=== PATIENT | female | born 1960 | race Caucasian/White ===

== ENCOUNTER 2021-12-31 14:15 | Inpatient (IN) | payer SELFPAY ==
[2021-12-31 16:16] LABS: #Eosinphils 0.1 thou/uL (0.0-0.7); #Lymphocytes 1.9 thou/uL (1.20-3.40); #Monocytes 0.7 thou/uL (0.11-0.59); #Neutrophils 8.8 thou/uL (1.40-6.50); %Basophils 0.4 % (0.0-1.0); %Eosinophils 0.9 % (0.0-10.0); %Lymphocytes 16.8 % (21.0-51.0); %Monocytes 5.6 % (0.0-10.0); %Neutrophils 76.3 % (42.0-75.0); Hemoglobin 14.1 g/dL (12.0-16.0); Mean Corpuscular HGB CONC 33.7 g/dL (32.0-36.0); Mean Corpuscular Hemoglobin 36.1 pg (27.0-31.0); Mean Platelet Volume 7.5 fL (7.4-10.4); Platelet Count 324 thou/uL (130-400); Red Blood Cell (RBC) Count 3.91 mill/uL (4.20-5.40); White Blood Cell (WBC) Count 11.5 thou/uL (4.8-10.8)
[2021-12-31] MEDS ORDERED: Ketorolac Tromethamine 30 MG/ML VIAL ONE (16:22)
[2021-12-31] MEDS ORDERED: Morphine 4 MG/ML VIAL ONE ×2 (16:22→19:17)
[2021-12-31 16:37] LABS: ALT (SGPT) 18 U/L (8-55); AST (SGOT) 15 U/L (5-34); Acetaminophen Less than 10.0 mcg/mL (10.0-30.0); Albumin 4.2 g/dL (3.4-4.8); Alcohol Less than 10 mg/dL (Less than 10); Alkaline Phosphatase 90 U/L (40-110); Anion Gap 17 mmol/L (10-20); BUN (Urea Nitrogen) 16 mg/dL (9.8-20.1); Bilirubin, Total 0.4 mg/dL (0.2-1.2); CK (CPK) 59 U/L (29-168); Calc. Creatinine Clearance 0 mL/min (70-130); Calcium 9.4 mg/dL (7.8-10.44); Carbon Dioxide 23 mmol/L (23-31); Chloride 101 mmol/L (98-107); Globulin 3.1 g/dL (2.4-3.5); Glucose 228 mg/dL (80-115); Potassium 4.2 mmol/L (3.5-5.1); Protein, Total 7.3 g/dL (5.8-8.1); Salicylate Less than 8.0 mg/dL (15.0-30.0); Sodium 137 mmol/L (136-145)
[2021-12-31 16:40] LABS: MDiff Complete? YES; Macrocytosis SLIGHT = 6-15 cells (100X) (0-5/hpf); Platelet Morphology Comment Appears Adequate
[2021-12-31 17:40] LABS: Bilirubin Negative (Negative); Blood, Urine Negative (Negative); Clarity Clear (Clear); Glucose, Urine (Dipstick) Normal (Negative); Ketone, Urine Negative (Negative); Leukocyte Negative Leu/uL (Negative); Nitrite Negative (Negative); Protein, Urine (Dipstick) Negative (Neg-Trace); Specific Gravity, Urine 1.006 (1.002-1.036); Urobilinogen Normal mg/dL (Less than 2)
[2021-12-31 17:49] LABS: Amphetamine Not Detected (NotDetected); Barbiturates Screen Not Detected (NotDetected); Benzodiazepine Screen Not Detected (NotDetected); Cocaine Metabolite Screen Not Detected (NotDetected); Methadone Not Detected (NotDetected); Methamphetamine Not Detected (NotDetected); Opiate Screen Detected (NotDetected); Oxycodone Screen Not Detected (NotDetected); Phencyclidine (PCP) Not Detected (NotDetected); THC/Cannabinoid Screen Detected (NotDetected); Tricyclic Screen Not Detected (NotDetected)
[2021-12-31] MEDS ORDERED: Ondansetron PF 4 MG/2 ML Vial IVP PRN (20:45)
[2021-12-31] MEDS ORDERED: Ondansetron ODT 4 MG TAB SL PRN (20:45)
[2021-12-31] MEDS ORDERED: Morphine 4 MG/ML VIAL SLOW IVP PRN (20:46)
[2021-12-31 21:13] VITALS: BMI 23.5
[2022-01-01 06:29] LABS: #Eosinphils 0.3 thou/uL (0.0-0.7); #Lymphocytes 3.3 thou/uL (1.20-3.40); #Neutrophils 4.1 thou/uL (1.40-6.50); %Basophils 0.4 % (0.0-1.0); %Eosinophils 3.1 % (0.0-10.0); %Lymphocytes 38.1 % (21.0-51.0); %Neutrophils 47.4 % (42.0-75.0); Hemoglobin 12.2 g/dL (12.0-16.0); Mean Corpuscular Hemoglobin 34.9 pg (27.0-31.0); Mean Platelet Volume 7.3 fL (7.4-10.4); Platelet Count 272 thou/uL (130-400); RBC Distribution Width 12.1 % (11.5-14.5); Red Blood Cell (RBC) Count 3.49 mill/uL (4.20-5.40); White Blood Cell (WBC) Count 8.6 thou/uL (4.8-10.8)
[2022-01-01 06:45] LABS: Anion Gap 14 mmol/L (10-20); BUN (Urea Nitrogen) 20 mg/dL (9.8-20.1); Calc. Creatinine Clearance 83 mL/min (70-130); Calcium 8.6 mg/dL (7.8-10.44); Carbon Dioxide 24 mmol/L (23-31); Chloride 106 mmol/L (98-107); Glucose 97 mg/dL (80-115); Potassium 4.1 mmol/L (3.5-5.1); Sodium 140 mmol/L (136-145)
[2022-01-01] MEDS: Gabapentin 300 MG CAP PO SCH ×2 (08:30→13:28)
[2022-01-01] MEDS ORDERED: HYDROcodone/Acetaminophen 5/325 mg Tablet PO PRN (08:40)
[2022-01-01] MEDS: HYDROcodone/Acetaminophen 5/325 mg Tablet PO PRN ×2 (08:55→13:28)
[2022-01-01] MEDS ORDERED: Thiamine 100 MG TAB PO SCH (09:00)
[2022-01-01] MEDS ORDERED: Folic Acid 1 MG TAB PO SCH (09:00)
[2022-01-01 09:08] VITALS: BP 91/57; TEMP 98
[2022-01-01] MEDS ORDERED: Lidocaine 5% Patch TD SCH (16:15)
[2022-01-01] MEDS ORDERED: PARoxetine 20 MG TAB PO SCH (21:00)
[2022-01-01] MEDS ORDERED: traZODone HCl 50 MG TAB PO SCH (21:00)
[2022-01-02] MEDS ORDERED: Transdermal Patch Removal TOP SCH (04:00)
== END 2022-01-01 17:24 | disposition home or self-care (01) | DRG 552 ==
LOC: ERS 14:15 → T4-A 19:34
PROVIDERS: ADMIT Internal Medicine; ATTEND Internal Medicine
DX: M54.16 Radiculopathy, lumbar region (principal); Z20.822 Contact with and (suspected) exposure to COVID-19; I10 Essential (primary) hypertension; F41.9 Anxiety disorder, unspecified; F32.A Depression, unspecified; E78.5 Hyperlipidemia, unspecified; F12.10 Cannabis abuse, uncomplicated; F17.210 Nicotine dependence, cigarettes, uncomplicated; E78.00 Pure hypercholesterolemia, unspecified; Z98.890 Other specified postprocedural states; Z88.0 Allergy status to penicillin; Z79.899 Other long term (current) drug therapy; Z82.49 Family history of ischemic heart disease and other diseases of the circulatory system; Z71.51 Drug abuse counseling and surveillance of drug abuser; Z71.6 Tobacco abuse counseling
CPT/HCPCS: 36415; 36416; 72148; 80048; 80053; 80306; 80307; 81003; 82550; 82607; 82746; 83690; 85025; 93005; 96374; 96375; 96376; J1885; J2270; U0003; U0005

== ENCOUNTER 2022-02-08 11:02 | Inpatient (IN) | payer SELFPAY ==
[2022-02-08] MEDS ORDERED: Morphine 4 MG/ML VIAL ONE (14:17)
[2022-02-08] MEDS ORDERED: Ondansetron PF 4 MG/2 ML Vial ONE (14:17)
[2022-02-08 15:16] LABS: ALT (SGPT) 41 U/L (8-55); AST (SGOT) 52 U/L (5-34); Alkaline Phosphatase 144 U/L (40-110); Anion Gap 14 mmol/L (10-20); BUN (Urea Nitrogen) 14 mg/dL (9.8-20.1); Bilirubin, Total 0.3 mg/dL (0.2-1.2); Calc. Creatinine Clearance 0 mL/min (70-130); Calcium 9.6 mg/dL (7.8-10.44); Carbon Dioxide 27 mmol/L (23-31); Chloride 100 mmol/L (98-107); Estimated GFR 98; Globulin 3.6 g/dL (2.4-3.5); Glucose 103 mg/dL (80-115); Lipase 23 U/L (8-78); Potassium 4.4 mmol/L (3.5-5.1); Protein, Total 7.6 g/dL (5.8-8.1); Sodium 137 mmol/L (136-145)
[2022-02-08 15:34] LABS: Bacteria/HPF None Seen HPF (None Seen); Bilirubin Negative (Negative); Blood, Urine 1+ (Negative); Clarity Clear (Clear); Glucose, Urine (Dipstick) Normal (Negative); Ketone, Urine Negative (Negative); Leukocyte 25 Leu/uL (Negative); Nitrite Negative (Negative); Protein, Urine (Dipstick) Negative (Neg-Trace); RBC/HPF 0-3 HPF (0-3); Specific Gravity, Urine 1.008 (1.002-1.036); Squamous Epithelial 0-3 HPF (0-3); Urobilinogen Normal mg/dL (Less than 2); WBC/HPF 0-3 HPF (0-3); pH, Urine 5.5 (5.0-9.0)
[2022-02-08 16:17] LABS: #Eosinphils 0.2 thou/uL (0.0-0.7); #Lymphocytes 1.6 thou/uL (1.20-3.40); #Monocytes 1.1 thou/uL (0.11-0.59); #Neutrophils 8.6 thou/uL (1.40-6.50); %Basophils 0.2 % (0.0-1.0); %Eosinophils 2.1 % (0.0-10.0); %Lymphocytes 14.2 % (21.0-51.0); %Monocytes 9.3 % (0.0-10.0); %Neutrophils 74.2 % (42.0-75.0); Hemoglobin 11.5 g/dL (12.0-16.0); Mean Corpuscular HGB CONC 32.5 g/dL (32.0-36.0); Mean Corpuscular Hemoglobin 34.4 pg (27.0-31.0); Mean Platelet Volume 7.3 fL (7.4-10.4); Platelet Count 322 thou/uL (130-400); RBC Distribution Width 12.3 % (11.5-14.5); Red Blood Cell (RBC) Count 3.33 mill/uL (4.20-5.40); White Blood Cell (WBC) Count 11.6 thou/uL (4.8-10.8)
[2022-02-08] MEDS ORDERED: Acetaminophen 325 MG TAB PO PRN (17:32)
[2022-02-08] MEDS ORDERED: Ondansetron PF 4 MG/2 ML Vial IVP PRN (17:32)
[2022-02-08] MEDS: HYDROcodone/Acetaminophen 10/325 mg Tablet PO PRN (18:20)
[2022-02-08] MEDS: Nicotine 21 MG PATCH TD SCH (18:20)
[2022-02-08] MEDS ORDERED: Vancomycin 1.5 GRAM/300 ML BAG 1.5 GM in Premix Bag 1 BAG IVPB SCH (22:00)
[2022-02-08] MEDS: Gabapentin 300 MG CAP PO SCH (22:34)
[2022-02-08] MEDS: Famotidine 20 MG TAB PO SCH (22:34)
[2022-02-08] MEDS: DULoxetine 30 MG CAP PO SCH (22:34)
[2022-02-08] MEDS: Ciprofloxacin Lactate/D5W 200 MG in Premix Bag 1 BAG IVPB SCH (22:35)
[2022-02-08] MEDS: Heparin 5,000 UNITS/ML VIAL SC SCH (22:35)
[2022-02-09] MEDS: HYDROcodone/Acetaminophen 10/325 mg Tablet PO PRN ×5 (01:07→23:36)
[2022-02-09] MEDS ORDERED: traZODone HCl 50 MG TAB PO SCH (02:00)
[2022-02-09 06:05] LABS: #Eosinphils 0.1 thou/uL (0.0-0.7); #Lymphocytes 2.2 thou/uL (1.20-3.40); #Monocytes 1.4 thou/uL (0.11-0.59); #Neutrophils 8.9 thou/uL (1.40-6.50); %Basophils 0.1 % (0.0-1.0); %Lymphocytes 17.3 % (21.0-51.0); %Monocytes 11.2 % (0.0-10.0); %Neutrophils 70.4 % (42.0-75.0); Hemoglobin 11.2 g/dL (12.0-16.0); Mean Corpuscular HGB CONC 32.4 g/dL (32.0-36.0); Mean Corpuscular Hemoglobin 34.1 pg (27.0-31.0); Mean Platelet Volume 7.5 fL (7.4-10.4); Platelet Count 341 thou/uL (130-400); RBC Distribution Width 12.2 % (11.5-14.5); Red Blood Cell (RBC) Count 3.28 mill/uL (4.20-5.40); White Blood Cell (WBC) Count 12.6 thou/uL (4.8-10.8)
[2022-02-09 06:22] LABS: Anion Gap 13 mmol/L (10-20); BUN (Urea Nitrogen) 10 mg/dL (9.8-20.1); Calc. Creatinine Clearance 105 mL/min (70-130); Carbon Dioxide 26 mmol/L (23-31); Chloride 95 mmol/L (98-107); Estimated GFR 101; Glucose 131 mg/dL (80-115); Potassium 3.9 mmol/L (3.5-5.1); Sodium 130 mmol/L (136-145)
[2022-02-09] MEDS: Ciprofloxacin Lactate/D5W 200 MG in Premix Bag 1 BAG IVPB SCH ×2 (09:15→20:16)
[2022-02-09] MEDS: Gabapentin 300 MG CAP PO SCH ×3 (09:16→20:18)
[2022-02-09] MEDS: NIFEdipine XL 90 MG TAB PO SCH (09:17)
[2022-02-09] MEDS: Heparin 5,000 UNITS/ML VIAL SC SCH ×2 (09:17→20:18)
[2022-02-09] MEDS: Famotidine 20 MG TAB PO SCH ×2 (09:18→20:17)
[2022-02-09] MEDS: Vancomycin 1 GM in Premix Bag 1 BAG IVPB SCH ×2 (10:41→23:35)
[2022-02-09] MEDS: Morphine 4 MG/ML VIAL SLOW IVP PRN (10:42)
[2022-02-09] MEDS ORDERED: Polyethylene Glycol 3350 17 GM Packet PO PRN (13:11)
[2022-02-09] MEDS: Nicotine 21 MG PATCH TD SCH (17:06)
[2022-02-09] MEDS: DULoxetine 30 MG CAP PO SCH (20:17)
[2022-02-09] MEDS: traZODone HCl 50 MG TAB PO SCH (20:17)
[2022-02-09 22:57] LABS: Hep C IgG Ab Non-Reactive (NonReactive); Hep C Index 0.08 S/CO (0-0.79)
[2022-02-09] MEDS ORDERED: Vancomycin 1 GM/200 ML BAG ONE (23:27)
[2022-02-10] MEDS: HYDROcodone/Acetaminophen 10/325 mg Tablet PO PRN ×4 (03:59→18:12)
[2022-02-10] MEDS: Heparin 5,000 UNITS/ML VIAL SC SCH ×2 (08:48→22:23)
[2022-02-10] MEDS: Gabapentin 300 MG CAP PO SCH ×3 (08:48→23:19)
[2022-02-10] MEDS: Famotidine 20 MG TAB PO SCH ×2 (08:49→22:16)
[2022-02-10 09:48] LABS: Vancomycin, Trough 12.6 ug/mL
[2022-02-10] MEDS ORDERED: VANCOMYCIN 1.25 GM/250 ML BAG 1.25 GM in Premix Bag 1 BAG IVPB SCH (10:00)
[2022-02-10] MEDS: Morphine 4 MG/ML VIAL SLOW IVP PRN ×2 (11:37→22:16)
[2022-02-10] MEDS: NIFEdipine XL 90 MG TAB PO SCH (11:37)
[2022-02-10] MEDS: Vancomycin 1 GM in Premix Bag 1 BAG IVPB SCH (11:40)
[2022-02-10] MEDS: Ciprofloxacin Lactate/D5W 200 MG in Premix Bag 1 BAG IVPB SCH (14:04)
[2022-02-10] MEDS: cefTRIAXone\\ROCEPHIN 1 GM in Sodium Chloride 0.9% 100 ML IVPB SCH (14:22)
[2022-02-10 14:38] LABS: #Eosinphils 0.1 thou/uL (0.0-0.7); #Lymphocytes 1.6 thou/uL (1.20-3.40); #Monocytes 1.4 thou/uL (0.11-0.59); #Neutrophils 10.6 thou/uL (1.40-6.50); %Basophils 0.1 % (0.0-1.0); %Eosinophils 0.5 % (0.0-10.0); %Lymphocytes 11.5 % (21.0-51.0); %Monocytes 10.1 % (0.0-10.0); %Neutrophils 77.9 % (42.0-75.0); Hemoglobin 10.6 g/dL (12.0-16.0); Mean Corpuscular HGB CONC 33.2 g/dL (32.0-36.0); Mean Corpuscular Hemoglobin 35.1 pg (27.0-31.0); Mean Platelet Volume 7.3 fL (7.4-10.4); Platelet Count 341 thou/uL (130-400); RBC Distribution Width 12.2 % (11.5-14.5); Red Blood Cell (RBC) Count 3.02 mill/uL (4.20-5.40); White Blood Cell (WBC) Count 13.6 thou/uL (4.8-10.8)
[2022-02-10 14:57] LABS: Anion Gap 15 mmol/L (10-20); BUN (Urea Nitrogen) 13 mg/dL (9.8-20.1); Calc. Creatinine Clearance 100 mL/min (70-130); Calcium 8.8 mg/dL (7.8-10.44); Carbon Dioxide 21 mmol/L (23-31); Chloride 97 mmol/L (98-107); Estimated GFR 100; Glucose 117 mg/dL (80-115); Potassium 4.1 mmol/L (3.5-5.1); Sodium 129 mmol/L (136-145)
[2022-02-10] MEDS: Nicotine 21 MG PATCH TD SCH (18:12)
[2022-02-10] MEDS: DULoxetine 30 MG CAP PO SCH (23:19)
[2022-02-10] MEDS: traZODone HCl 50 MG TAB PO SCH (23:20)
[2022-02-11 06:00] LABS: #Eosinphils 0.1 thou/uL (0.0-0.7); #Lymphocytes 1.7 thou/uL (1.20-3.40); #Monocytes 1.7 thou/uL (0.11-0.59); #Neutrophils 11.8 thou/uL (1.40-6.50); %Eosinophils 0.3 % (0.0-10.0); %Lymphocytes 11.2 % (21.0-51.0); %Monocytes 11.1 % (0.0-10.0); %Neutrophils 77.4 % (42.0-75.0); Hemoglobin 10.7 g/dL (12.0-16.0); Mean Corpuscular HGB CONC 33.2 g/dL (32.0-36.0); Mean Corpuscular Hemoglobin 34.8 pg (27.0-31.0); Mean Platelet Volume 7.2 fL (7.4-10.4); Platelet Count 381 thou/uL (130-400); RBC Distribution Width 12.1 % (11.5-14.5); Red Blood Cell (RBC) Count 3.08 mill/uL (4.20-5.40); White Blood Cell (WBC) Count 15.3 thou/uL (4.8-10.8)
[2022-02-11 06:17] LABS: Anion Gap 15 mmol/L (10-20); BUN (Urea Nitrogen) 10 mg/dL (9.8-20.1); Calc. Creatinine Clearance 100 mL/min (70-130); Calcium 9.2 mg/dL (7.8-10.44); Carbon Dioxide 24 mmol/L (23-31); Chloride 94 mmol/L (98-107); Estimated GFR 100; Glucose 135 mg/dL (80-115); Potassium 4.2 mmol/L (3.5-5.1); Sodium 129 mmol/L (136-145)
[2022-02-11] MEDS: Morphine 4 MG/ML VIAL SLOW IVP PRN ×3 (08:29→20:26)
[2022-02-11] MEDS: NIFEdipine XL 90 MG TAB PO SCH (08:37)
[2022-02-11] MEDS: Gabapentin 300 MG CAP PO SCH ×3 (08:37→20:24)
[2022-02-11] MEDS: Heparin 5,000 UNITS/ML VIAL SC SCH ×2 (08:38→20:31)
[2022-02-11] MEDS: Famotidine 20 MG TAB PO SCH ×2 (08:38→20:24)
[2022-02-11] MEDS ORDERED: valACYclovir 500 MG TAB PO SCH ×2 (09:00→11:30)
[2022-02-11] MEDS ORDERED: Lidocaine 1% w/Epinephrine 1:100K 20 ML VIAL FS SCH (10:45)
[2022-02-11] MEDS: cefTRIAXone\\ROCEPHIN 1 GM in Sodium Chloride 0.9% 100 ML IVPB SCH (15:42)
[2022-02-11] MEDS: Nicotine 21 MG PATCH TD SCH (18:06)
[2022-02-11] MEDS: traZODone HCl 50 MG TAB PO SCH (20:23)
[2022-02-11] MEDS: DULoxetine 30 MG CAP PO SCH (20:24)
[2022-02-11] MEDS: valACYclovir 500 MG TAB PO SCH (20:24)
[2022-02-11] MEDS: Sodium Chloride 0.9% 1,000 ML IV SCH (21:14)
[2022-02-11] MEDS: HYDROcodone/Acetaminophen 10/325 mg Tablet PO PRN (22:42)
[2022-02-12] MEDS: HYDROcodone/Acetaminophen 10/325 mg Tablet PO PRN ×3 (06:03→17:08)
[2022-02-12 06:52] LABS: Anion Gap 17 mmol/L (10-20); BUN (Urea Nitrogen) 13 mg/dL (9.8-20.1); Calc. Creatinine Clearance 107 mL/min (70-130); Calcium 8.8 mg/dL (7.8-10.44); Carbon Dioxide 21 mmol/L (23-31); Chloride 91 mmol/L (98-107); Estimated GFR 102; Glucose 112 mg/dL (80-115); Potassium 3.6 mmol/L (3.5-5.1); Sodium 125 mmol/L (136-145)
[2022-02-12] MEDS: Sodium Chloride 0.9% 1,000 ML IV SCH ×2 (07:32→20:16)
[2022-02-12] MEDS: valACYclovir 500 MG TAB PO SCH ×3 (08:27→21:00)
[2022-02-12] MEDS: Gabapentin 300 MG CAP PO SCH ×2 (08:28→13:58)
[2022-02-12] MEDS: Famotidine 20 MG TAB PO SCH ×2 (08:28→21:01)
[2022-02-12] MEDS: NIFEdipine XL 90 MG TAB PO SCH (08:28)
[2022-02-12] MEDS: Heparin 5,000 UNITS/ML VIAL SC SCH ×2 (08:28→21:03)
[2022-02-12] MEDS: Morphine 4 MG/ML VIAL SLOW IVP PRN ×4 (08:32→23:26)
[2022-02-12 09:06] LABS: Band 5 % (5-11); Hemoglobin 10.6 g/dL (12.0-16.0); Lymphocytes 6 % (21-51); MDiff Complete? YES; Mean Corpuscular Hemoglobin 35.3 pg (27.0-31.0); Mean Platelet Volume 7.3 fL (7.4-10.4); Metamyelocyte 3 % (0-0); Monocytes 10 % (0-10); Neutrophil 76 % (42-75); Platelet Count 380 thou/uL (130-400); Platelet Morphology Comment Appears Adequate; RBC Morphology Normal; Red Blood Cell (RBC) Count 3.01 mill/uL (4.20-5.40)
[2022-02-12] MEDS: cefTRIAXone\\ROCEPHIN 1 GM in Sodium Chloride 0.9% 100 ML IVPB SCH (13:59)
[2022-02-12] MEDS: Ferrous Sulfate 325 MG TAB PO SCH (17:07)
[2022-02-12] MEDS: Nicotine 21 MG PATCH TD SCH (17:08)
[2022-02-12] MEDS: traZODone HCl 50 MG TAB PO SCH (20:59)
[2022-02-12] MEDS: Gabapentin 400 MG CAP PO SCH (20:59)
[2022-02-12] MEDS: DULoxetine 30 MG CAP PO SCH (21:01)
[2022-02-13] MEDS: HYDROcodone/Acetaminophen 10/325 mg Tablet PO PRN ×4 (01:32→17:01)
[2022-02-13 06:53] LABS: Band 13 % (5-11); Hemoglobin 9.8 g/dL (12.0-16.0); Hypochromia SLIGHT = 6-15 cells (100X) (0-5/hpf); Lymphocytes 23 % (21-51); MDiff Complete? YES; Mean Corpuscular HGB CONC 32.7 g/dL (32.0-36.0); Mean Corpuscular Hemoglobin 34.9 pg (27.0-31.0); Mean Platelet Volume 7.9 fL (7.4-10.4); Monocytes 7 % (0-10); Neutrophil 57 % (42-75); Platelet Count 301 thou/uL (130-400); Platelet Morphology Comment Appears Adequate; RBC Distribution Width 12.1 % (11.5-14.5); Red Blood Cell (RBC) Count 2.81 mill/uL (4.20-5.40); White Blood Cell (WBC) Count 17.1 thou/uL (4.8-10.8)
[2022-02-13 06:55] LABS: Anion Gap 19 mmol/L (10-20); BUN (Urea Nitrogen) 8 mg/dL (9.8-20.1); Calc. Creatinine Clearance 113 mL/min (70-130); Calcium 8.6 mg/dL (7.8-10.44); Carbon Dioxide 17 mmol/L (23-31); Chloride 92 mmol/L (98-107); Estimated GFR 103; Glucose 93 mg/dL (80-115); Potassium 4.6 mmol/L (3.5-5.1); Sodium 123 mmol/L (136-145)
[2022-02-13] MEDS: NIFEdipine XL 90 MG TAB PO SCH (07:53)
[2022-02-13] MEDS: Gabapentin 400 MG CAP PO SCH ×2 (07:54→14:18)
[2022-02-13] MEDS: Heparin 5,000 UNITS/ML VIAL SC SCH ×2 (07:54→20:44)
[2022-02-13] MEDS: Ferrous Sulfate 325 MG TAB PO SCH ×2 (07:55→17:02)
[2022-02-13] MEDS: Famotidine 20 MG TAB PO SCH ×2 (07:55→20:44)
[2022-02-13] MEDS: Morphine 4 MG/ML VIAL SLOW IVP PRN ×2 (07:55→13:50)
[2022-02-13] MEDS: Sodium Bicarbonate Tab 325 MG TAB PO SCH ×3 (09:20→20:44)
[2022-02-13] MEDS: Losartan 25 MG TAB PO SCH (09:20)
[2022-02-13] MEDS: valACYclovir 500 MG TAB PO SCH ×2 (09:20→14:19)
[2022-02-13] MEDS ORDERED: Bisacodyl 10 MG SUPP PR SCH (13:45)
[2022-02-13] MEDS ORDERED: Polyethylene Glycol 3350 17 GM Packet PO PRN (13:45)
[2022-02-13] MEDS ORDERED: Lidocaine 5% Patch TD SCH (14:00)
[2022-02-13] MEDS: cefTRIAXone\\ROCEPHIN 1 GM in Sodium Chloride 0.9% 100 ML IVPB SCH (14:18)
[2022-02-13] MEDS: Sodium Chloride 1 GM TAB PO SCH ×2 (14:18→21:34)
[2022-02-13 14:37] LABS: Cytoplasmic (C-ANCA) <1:20 titer (Neg:<1:20); Perinuclear (P-ANCA) <1:20 titer (Neg:<1:20)
[2022-02-13 14:39] LABS: Anion Gap 14 mmol/L (10-20); BUN (Urea Nitrogen) 9 mg/dL (9.8-20.1); Calc. Creatinine Clearance 113 mL/min (70-130); Calcium 8.5 mg/dL (7.8-10.44); Carbon Dioxide 23 mmol/L (23-31); Chloride 91 mmol/L (98-107); Estimated GFR 103; Glucose 114 mg/dL (80-115); Potassium 3.8 mmol/L (3.5-5.1); Sodium 124 mmol/L (136-145)
[2022-02-13] MEDS: Nicotine 21 MG PATCH TD SCH (17:01)
[2022-02-13] MEDS ORDERED: diphenhydrAMINE 50 MG/ML VIAL IM PRN (17:35)
[2022-02-13] MEDS ORDERED: fentaNYL Citrate/PF 2,000 MCG in Sodium Chloride 0.9% 60 ML IV PRN (17:35)
[2022-02-13] MEDS ORDERED: Naloxone HCl 0.4 mg/ml Vial IV PRN (17:35)
[2022-02-13] MEDS ORDERED: Ondansetron PF 4 MG/2 ML Vial IVP PRN (17:35)
[2022-02-13] MEDS ORDERED: Promethazine HCl 25 MG/ML VIAL IM PRN (17:35)
[2022-02-13] MEDS ORDERED: Communication Order-Pharmacy FS SCH (17:45)
[2022-02-13 20:31] LABS: Anion Gap 17 mmol/L (10-20); BUN (Urea Nitrogen) 7 mg/dL (9.8-20.1); Calc. Creatinine Clearance 115 mL/min (70-130); Calcium 8.7 mg/dL (7.8-10.44); Carbon Dioxide 22 mmol/L (23-31); Chloride 90 mmol/L (98-107); Estimated GFR 104; Glucose 109 mg/dL (80-115); Potassium 3.7 mmol/L (3.5-5.1); Sodium 125 mmol/L (136-145)
[2022-02-13] MEDS: Transdermal Patch Removal TOP SCH (20:45)
[2022-02-13] MEDS: traZODone HCl 50 MG TAB PO SCH (20:45)
[2022-02-13] MEDS: Gabapentin 300 MG CAP PO SCH (20:45)
[2022-02-13] MEDS: DULoxetine 30 MG CAP PO SCH (20:45)
[2022-02-13] MEDS ORDERED: Transdermal Patch Removal TOP SCH (23:59)
[2022-02-14 06:31] LABS: Anion Gap 18 mmol/L (10-20); BUN (Urea Nitrogen) 7 mg/dL (9.8-20.1); Calc. Creatinine Clearance 121 mL/min (70-130); Calcium 8.7 mg/dL (7.8-10.44); Carbon Dioxide 21 mmol/L (23-31); Chloride 92 mmol/L (98-107); Estimated GFR 105; Glucose 111 mg/dL (80-115); Potassium 3.7 mmol/L (3.5-5.1); Sodium 127 mmol/L (136-145)
[2022-02-14 06:52] LABS: Hemoglobin 9.9 g/dL (12.0-16.0); Mean Corpuscular HGB CONC 33.5 g/dL (32.0-36.0); Mean Corpuscular Hemoglobin 34.5 pg (27.0-31.0); Mean Platelet Volume 7.4 fL (7.4-10.4); Platelet Count 439 thou/uL (130-400); RBC Distribution Width 12.1 % (11.5-14.5); Red Blood Cell (RBC) Count 2.88 mill/uL (4.20-5.40); White Blood Cell (WBC) Count 17.6 thou/uL (4.8-10.8)
[2022-02-14 07:30] LABS: Band 25 % (5-11); MDiff Complete? YES; Neutrophil 59 % (42-75)
[2022-02-14 07:31] LABS: Lymphocytes 9 % (21-51); Monocytes 6 % (0-10); Myelocyte 1 % (0-0); Platelet Morphology Comment Appears Increased; Polychromasia SLIGHT = 2-3 cells (100X) (0-2/hpf)
[2022-02-14] MEDS: Lidocaine 5% Patch TD SCH (08:48)
[2022-02-14] MEDS: NIFEdipine XL 90 MG TAB PO SCH (08:48)
[2022-02-14] MEDS: Gabapentin 400 MG CAP PO SCH ×2 (08:49→13:29)
[2022-02-14] MEDS: Famotidine 20 MG TAB PO SCH ×2 (08:49→20:07)
[2022-02-14] MEDS: Sodium Chloride 1 GM TAB PO SCH ×3 (08:49→20:07)
[2022-02-14] MEDS: Ferrous Sulfate 325 MG TAB PO SCH ×2 (08:49→17:21)
[2022-02-14] MEDS: Losartan 25 MG TAB PO SCH (08:49)
[2022-02-14] MEDS: Sodium Bicarbonate Tab 325 MG TAB PO SCH ×3 (08:50→20:07)
[2022-02-14] MEDS: Heparin 5,000 UNITS/ML VIAL SC SCH ×2 (08:50→20:09)
[2022-02-14] MEDS: Polyethylene Glycol 3350 17 GM Packet PO SCH (08:50)
[2022-02-14] MEDS ORDERED: Gabapentin 400 MG CAP PO SCH ×2 (09:00→14:00)
[2022-02-14] MEDS ORDERED: Ketorolac Tromethamine 30 MG/ML VIAL IVP PRN (10:52)
[2022-02-14] MEDS: HYDROcodone/Acetaminophen 10/325 mg Tablet PO PRN ×2 (11:35→17:20)
[2022-02-14] MEDS: traMADol HCl 50 MG TAB PO PRN ×2 (13:33→20:04)
[2022-02-14] MEDS: cefTRIAXone\\ROCEPHIN 1 GM in Sodium Chloride 0.9% 100 ML IVPB SCH (15:26)
[2022-02-14] MEDS: Nicotine 21 MG PATCH TD SCH (17:20)
[2022-02-14] MEDS: Gabapentin 300 MG CAP PO SCH (20:06)
[2022-02-14] MEDS: DULoxetine 30 MG CAP PO SCH (20:07)
[2022-02-14] MEDS: traZODone HCl 50 MG TAB PO SCH (20:15)
[2022-02-14] MEDS: Acetaminophen 325 MG TAB PO SCH (20:15)
[2022-02-14] MEDS: Transdermal Patch Removal TOP SCH (21:00)
[2022-02-15] MEDS: HYDROcodone/Acetaminophen 10/325 mg Tablet PO PRN (00:38)
[2022-02-15] MEDS: diphenhydrAMINE 25 MG CAP PO PRN (00:40)
[2022-02-15] MEDS: Zolpidem Tartrate 5 MG TAB PO PRN (00:40)
[2022-02-15 06:42] LABS: Hemoglobin 9.9 g/dL (12.0-16.0); Mean Corpuscular HGB CONC 32.8 g/dL (32.0-36.0); Mean Corpuscular Hemoglobin 34.3 pg (27.0-31.0); Mean Platelet Volume 7.4 fL (7.4-10.4); Platelet Count 458 thou/uL (130-400); RBC Distribution Width 12.1 % (11.5-14.5); Red Blood Cell (RBC) Count 2.88 mill/uL (4.20-5.40); White Blood Cell (WBC) Count 16.2 thou/uL (4.8-10.8)
[2022-02-15 07:27] LABS: Anion Gap 17 mmol/L (10-20); BUN (Urea Nitrogen) 7 mg/dL (9.8-20.1); Calc. Creatinine Clearance 131 mL/min (70-130); Calcium 8.8 mg/dL (7.8-10.44); Carbon Dioxide 20 mmol/L (23-31); Chloride 93 mmol/L (98-107); Estimated GFR 107; Glucose 91 mg/dL (80-115); Potassium 3.8 mmol/L (3.5-5.1); Sodium 126 mmol/L (136-145)
[2022-02-15 08:23] LABS: Band 14 % (5-11); Lymphocytes 4 % (21-51); MDiff Complete? YES; Macrocytosis SLIGHT = 6-15 cells (100X) (0-5/hpf); Monocytes 1 % (0-10); Neutrophil 81 % (42-75); Platelet Morphology Comment Appears Increased; Polychromasia SLIGHT = 2-3 cells (100X) (0-2/hpf)
[2022-02-15] MEDS ORDERED: Albumin 25% 25 GM/100 ML BOT IVPB SCH (08:36)
[2022-02-15 09:13] LABS: Albumin 3.3 g/dL (3.4-4.8)
[2022-02-15] MEDS: Sodium Bicarbonate Tab 325 MG TAB PO SCH ×3 (09:22→20:33)
[2022-02-15] MEDS: Famotidine 20 MG TAB PO SCH ×2 (09:22→20:33)
[2022-02-15] MEDS: Heparin 5,000 UNITS/ML VIAL SC SCH ×2 (09:22→20:36)
[2022-02-15] MEDS: Ferrous Sulfate 325 MG TAB PO SCH ×2 (09:23→15:38)
[2022-02-15] MEDS: Gabapentin 400 MG CAP PO SCH ×2 (09:23→14:45)
[2022-02-15] MEDS: Sodium Chloride 1 GM TAB PO SCH ×3 (09:23→20:39)
[2022-02-15] MEDS: Acetaminophen 325 MG TAB PO PRN ×2 (09:23→23:32)
[2022-02-15] MEDS: Acetaminophen 325 MG TAB PO SCH ×2 (09:24→20:28)
[2022-02-15] MEDS: Polyethylene Glycol 3350 17 GM Packet PO SCH (09:25)
[2022-02-15] MEDS: Lidocaine 5% Patch TD SCH (09:25)
[2022-02-15] MEDS: Fentanyl 100 MCG/2 ML VIAL SLOW IVP PRN (10:11)
[2022-02-15 14:04] LABS: Complement-C4 30.8 mg/dL (15-57)
[2022-02-15 14:14] LABS: HBSAg Index 0.32 S/CO (0-0.99); Hep B Surf Ag Non-Reactive S/CO (NonReactive); Hep C IgG Ab Non-Reactive (NonReactive); Hep C Index 0.09 S/CO (0-0.79)
[2022-02-15] MEDS: cefTRIAXone\\ROCEPHIN 1 GM in Sodium Chloride 0.9% 100 ML IVPB SCH (14:45)
[2022-02-15 15:37] LABS: HBSAB Concentration 10.83 mIU/mL; Hep B Surf AB Indeterminate (NonReactive)
[2022-02-15] MEDS: methylPREDNISolone Sod Succ 40 MG VIAL IVP SCH ×2 (16:39→23:22)
[2022-02-15] MEDS: Nicotine 21 MG PATCH TD SCH (18:05)
[2022-02-15] MEDS: traMADol HCl 50 MG TAB PO PRN ×2 (20:30→23:30)
[2022-02-15] MEDS: Gabapentin 300 MG CAP PO SCH (20:32)
[2022-02-15] MEDS: traZODone HCl 50 MG TAB PO SCH (20:33)
[2022-02-15] MEDS: Transdermal Patch Removal TOP SCH (20:51)
[2022-02-16] MEDS: HYDROcodone/Acetaminophen 10/325 mg Tablet PO PRN ×3 (05:03→17:43)
[2022-02-16] MEDS: methylPREDNISolone Sod Succ 40 MG VIAL IVP SCH ×4 (05:05→23:55)
[2022-02-16 08:15] LABS: Anion Gap 18 mmol/L (10-20); BUN (Urea Nitrogen) 11 mg/dL (9.8-20.1); Calc. Creatinine Clearance 113 mL/min (70-130); Calcium 9.4 mg/dL (7.8-10.44); Carbon Dioxide 22 mmol/L (23-31); Chloride 99 mmol/L (98-107); Estimated GFR 103; Glucose 138 mg/dL (80-115); Potassium 4.2 mmol/L (3.5-5.1); Sodium 135 mmol/L (136-145)
[2022-02-16] MEDS: Acetaminophen 325 MG TAB PO SCH ×2 (09:36→21:36)
[2022-02-16] MEDS: Famotidine 20 MG TAB PO SCH ×2 (09:37→21:37)
[2022-02-16] MEDS: Sodium Bicarbonate Tab 325 MG TAB PO SCH ×3 (09:37→21:38)
[2022-02-16] MEDS: Sodium Chloride 1 GM TAB PO SCH ×3 (09:37→21:39)
[2022-02-16] MEDS: Ferrous Sulfate 325 MG TAB PO SCH ×2 (09:37→17:42)
[2022-02-16] MEDS: Polyethylene Glycol 3350 17 GM Packet PO SCH (09:37)
[2022-02-16] MEDS: Gabapentin 400 MG CAP PO SCH ×2 (09:38→12:56)
[2022-02-16] MEDS: Heparin 5,000 UNITS/ML VIAL SC SCH ×2 (09:40→21:41)
[2022-02-16] MEDS: Losartan 25 MG TAB PO SCH (09:57)
[2022-02-16] MEDS: Lidocaine 5% Patch TD SCH (09:58)
[2022-02-16] MEDS: traMADol HCl 50 MG TAB PO PRN ×2 (12:56→21:37)
[2022-02-16] MEDS: cefTRIAXone\\ROCEPHIN 1 GM in Sodium Chloride 0.9% 100 ML IVPB SCH (13:50)
[2022-02-16] MEDS: Fentanyl 100 MCG/2 ML VIAL SLOW IVP PRN (13:55)
[2022-02-16] MEDS: Nicotine 21 MG PATCH TD SCH (17:42)
[2022-02-16] MEDS: traZODone HCl 50 MG TAB PO SCH (21:38)
[2022-02-16] MEDS: Gabapentin 300 MG CAP PO SCH (21:39)
[2022-02-16] MEDS: Transdermal Patch Removal TOP SCH (21:41)
[2022-02-17] MEDS: HYDROcodone/Acetaminophen 10/325 mg Tablet PO PRN ×5 (01:19→23:34)
[2022-02-17] MEDS: traMADol HCl 50 MG TAB PO PRN (03:46)
[2022-02-17] MEDS: Acetaminophen 325 MG TAB PO PRN (03:47)
[2022-02-17] MEDS: methylPREDNISolone Sod Succ 40 MG VIAL IVP SCH ×2 (05:02→12:47)
[2022-02-17 06:44] LABS: Hemoglobin 10.3 g/dL (12.0-16.0); Mean Corpuscular HGB CONC 32.7 g/dL (32.0-36.0); Mean Corpuscular Hemoglobin 34.7 pg (27.0-31.0); Mean Platelet Volume 7.3 fL (7.4-10.4); Platelet Count 555 thou/uL (130-400); RBC Distribution Width 12.5 % (11.5-14.5); Red Blood Cell (RBC) Count 2.98 mill/uL (4.20-5.40); White Blood Cell (WBC) Count 23.5 thou/uL (4.8-10.8)
[2022-02-17 06:59] LABS: Anion Gap 14 mmol/L (10-20); BUN (Urea Nitrogen) 24 mg/dL (9.8-20.1); Calc. Creatinine Clearance 97 mL/min (70-130); Calcium 8.8 mg/dL (7.8-10.44); Carbon Dioxide 25 mmol/L (23-31); Chloride 101 mmol/L (98-107); Estimated GFR 99; Glucose 166 mg/dL (80-115); Potassium 3.8 mmol/L (3.5-5.1); Sodium 136 mmol/L (136-145)
[2022-02-17 08:00] LABS: Band 16 % (5-11); Lymphocytes 6 % (21-51); MDiff Complete? YES; Monocytes 6 % (0-10); Myelocyte 2 % (0-0); Neutrophil 69 % (42-75); Platelet Morphology Comment Appears Increased; RBC Morphology Normal; Reactive Lymphocytes 1 % (0-10)
[2022-02-17] MEDS ORDERED: Iopamidol-370 76% 500 ML 1 ML ONE (09:30)
[2022-02-17] MEDS: Acetaminophen 325 MG TAB PO SCH ×2 (09:59→21:39)
[2022-02-17] MEDS: NIFEdipine XL 60 MG TAB PO SCH (10:00)
[2022-02-17] MEDS: Sodium Bicarbonate Tab 325 MG TAB PO SCH ×3 (10:00→21:40)
[2022-02-17] MEDS: Famotidine 20 MG TAB PO SCH ×2 (10:00→21:40)
[2022-02-17] MEDS: Ferrous Sulfate 325 MG TAB PO SCH ×2 (10:01→18:04)
[2022-02-17] MEDS: Sodium Chloride 1 GM TAB PO SCH ×3 (10:01→21:40)
[2022-02-17] MEDS: Gabapentin 400 MG CAP PO SCH ×2 (10:01→12:47)
[2022-02-17] MEDS: Polyethylene Glycol 3350 17 GM Packet PO SCH (10:02)
[2022-02-17] MEDS: Losartan 25 MG TAB PO SCH (10:02)
[2022-02-17] MEDS: Lidocaine 5% Patch TD SCH (10:04)
[2022-02-17] MEDS: Heparin 5,000 UNITS/ML VIAL SC SCH ×2 (10:12→21:41)
[2022-02-17 16:05] LABS: PTT 28.3 sec (22.9-36.1); Prothrombin Time 13.2 sec (12.0-14.7)
[2022-02-17] MEDS: Nicotine 21 MG PATCH TD SCH (18:05)
[2022-02-17] MEDS: Gabapentin 300 MG CAP PO SCH (21:40)
[2022-02-17] MEDS: traZODone HCl 50 MG TAB PO SCH (21:40)
[2022-02-17] MEDS: Transdermal Patch Removal TOP SCH (21:46)
[2022-02-17] MEDS: Zolpidem Tartrate 5 MG TAB PO PRN (23:41)
[2022-02-18] MEDS: HYDROcodone/Acetaminophen 10/325 mg Tablet PO PRN ×5 (04:25→21:51)
[2022-02-18 06:48] LABS: Anion Gap 16 mmol/L (10-20); BUN (Urea Nitrogen) 16 mg/dL (9.8-20.1); Calc. Creatinine Clearance 105 mL/min (70-130); Calcium 9.3 mg/dL (7.8-10.44); Carbon Dioxide 26 mmol/L (23-31); Chloride 102 mmol/L (98-107); Estimated GFR 101; Glucose 104 mg/dL (80-115); Magnesium 2.1 mg/dL (1.6-2.6); Potassium 3.7 mmol/L (3.5-5.1); Sodium 140 mmol/L (136-145)
[2022-02-18 06:56] LABS: Band 7 % (5-11); Hemoglobin 11.2 g/dL (12.0-16.0); Lymphocytes 15 % (21-51); MDiff Complete? YES; Mean Corpuscular HGB CONC 32.2 g/dL (32.0-36.0); Mean Corpuscular Hemoglobin 34.3 pg (27.0-31.0); Monocytes 5 % (0-10); Myelocyte 3 % (0-0); Neutrophil 70 % (42-75); Platelet Count 655 thou/uL (130-400); RBC Distribution Width 12.4 % (11.5-14.5); Red Blood Cell (RBC) Count 3.27 mill/uL (4.20-5.40); White Blood Cell (WBC) Count 17.6 thou/uL (4.8-10.8)
[2022-02-18] MEDS: Sodium Bicarbonate Tab 325 MG TAB PO SCH ×3 (08:31→21:51)
[2022-02-18] MEDS: NIFEdipine XL 60 MG TAB PO SCH (08:32)
[2022-02-18] MEDS: Gabapentin 400 MG CAP PO SCH ×2 (08:32→13:45)
[2022-02-18] MEDS: Ferrous Sulfate 325 MG TAB PO SCH ×2 (08:33→16:57)
[2022-02-18] MEDS: Losartan 25 MG TAB PO SCH (08:33)
[2022-02-18] MEDS: Polyethylene Glycol 3350 17 GM Packet PO SCH (08:34)
[2022-02-18] MEDS: Sodium Chloride 1 GM TAB PO SCH ×3 (08:34→21:51)
[2022-02-18] MEDS: Famotidine 20 MG TAB PO SCH ×2 (08:34→21:53)
[2022-02-18] MEDS: Heparin 5,000 UNITS/ML VIAL SC SCH ×2 (08:35→21:54)
[2022-02-18] MEDS: Lidocaine 5% Patch TD SCH (08:35)
[2022-02-18] MEDS: traMADol HCl 50 MG TAB PO PRN (13:44)
[2022-02-18 16:20] LABS: HIV (1/2) Antibody/Antigen Non-Reactive (NonReactive); HIV 1/2 INDEX 0.22 S/CO (<1.00)
[2022-02-18 16:28] LABS: ANA Symphony (Qualitative) Negative (Negative); ANA Symphony (Quantitative) 0.4 Ratio (< 0.7 Negative); dsDNA IgG Antibody 0.6 IU/mL (<10 Negative)
[2022-02-18] MEDS: Nicotine 21 MG PATCH TD SCH (17:00)
[2022-02-18 18:27] LABS: Cardiolipin IgG Ab 0.7 GPL-U/mL (<10 Negative); Cardiolipin IgM Ab 1.6 MPL-U/mL (<10 Negative); EliA APS New Method **** NEW METHOD ****; beta-2-Glycoprotein I IgG Ab 1.5 U/mL (<7 Negative); beta-2-Glycoprotein I IgM Abs Less than 2.9 U/mL (<7 Negative)
[2022-02-18 18:32] LABS: CCP IgG Antibody 1.8 EliAU/mL (<7 Negative); Rheumatoid Factor IgA Antibody 4.2 IU/mL (<14 Negative); Rheumatoid Factor IgM Antibody 1.1 IU/mL (<3.5 Negative)
[2022-02-18] MEDS: traZODone HCl 50 MG TAB PO SCH (21:51)
[2022-02-18] MEDS: Gabapentin 300 MG CAP PO SCH (21:52)
[2022-02-19] MEDS: Zolpidem Tartrate 5 MG TAB PO PRN (00:05)
[2022-02-19] MEDS: Transdermal Patch Removal TOP SCH ×2 (00:05→21:38)
[2022-02-19] MEDS: traMADol HCl 50 MG TAB PO PRN (00:05)
[2022-02-19] MEDS: HYDROcodone/Acetaminophen 10/325 mg Tablet PO PRN ×2 (03:50→09:52)
[2022-02-19 07:03] LABS: Band 10 % (5-11); Eosinophils 1 % (0-10); Hemoglobin 10.5 g/dL (12.0-16.0); Lymphocytes 19 % (21-51); MDiff Complete? YES; Mean Corpuscular HGB CONC 31.8 g/dL (32.0-36.0); Mean Corpuscular Hemoglobin 33.3 pg (27.0-31.0); Mean Platelet Volume 6.7 fL (7.4-10.4); Monocytes 2 % (0-10); Myelocyte 4 % (0-0); Neutrophil 64 % (42-75); Platelet Count 644 thou/uL (130-400); Platelet Morphology Comment Appears Increased; RBC Distribution Width 12.6 % (11.5-14.5); Red Blood Cell (RBC) Count 3.15 mill/uL (4.20-5.40); Toxic Granulation SLIGHT
[2022-02-19 07:06] LABS: Anion Gap 15 mmol/L (10-20); BUN (Urea Nitrogen) 13 mg/dL (9.8-20.1); Calc. Creatinine Clearance 103 mL/min (70-130); Carbon Dioxide 27 mmol/L (23-31); Chloride 101 mmol/L (98-107); Estimated GFR 101; Glucose 98 mg/dL (80-115); Potassium 4.5 mmol/L (3.5-5.1); Sodium 138 mmol/L (136-145)
[2022-02-19] MEDS: Lidocaine 5% Patch TD SCH (08:32)
[2022-02-19] MEDS: Polyethylene Glycol 3350 17 GM Packet PO SCH (08:33)
[2022-02-19] MEDS: Sodium Bicarbonate Tab 325 MG TAB PO SCH ×3 (08:33→21:33)
[2022-02-19] MEDS: NIFEdipine XL 60 MG TAB PO SCH (08:33)
[2022-02-19] MEDS: Famotidine 20 MG TAB PO SCH ×2 (08:34→21:34)
[2022-02-19] MEDS: Gabapentin 400 MG CAP PO SCH ×2 (08:34→15:42)
[2022-02-19] MEDS: Ferrous Sulfate 325 MG TAB PO SCH ×2 (08:34→17:19)
[2022-02-19] MEDS: Heparin 5,000 UNITS/ML VIAL SC SCH ×2 (08:35→21:37)
[2022-02-19] MEDS: Sodium Chloride 1 GM TAB PO SCH ×3 (08:35→21:35)
[2022-02-19] MEDS: Losartan 25 MG TAB PO SCH (08:35)
[2022-02-19] MEDS ORDERED: oxyCODONE ER 10 MG TAB PO SCH (10:30)
[2022-02-19] MEDS: Nicotine 21 MG PATCH TD SCH (17:19)
[2022-02-19] MEDS: Morphine 2 MG/ML VIAL SLOW IVP PRN (19:09)
[2022-02-19] MEDS: Gabapentin 300 MG CAP PO SCH (21:34)
[2022-02-19] MEDS: traZODone HCl 50 MG TAB PO SCH (21:34)
[2022-02-19] MEDS: oxyCODONE ER 10 MG TAB PO SCH (21:35)
[2022-02-20] MEDS: diphenhydrAMINE 25 MG CAP PO PRN ×2 (00:30→04:37)
[2022-02-20] MEDS: Morphine 2 MG/ML VIAL SLOW IVP PRN ×4 (00:31→18:03)
[2022-02-20 06:59] LABS: Hemoglobin 11.2 g/dL (12.0-16.0); Mean Corpuscular HGB CONC 32.7 g/dL (32.0-36.0); Mean Corpuscular Hemoglobin 34.6 pg (27.0-31.0); Mean Platelet Volume 6.6 fL (7.4-10.4); Platelet Count 659 thou/uL (130-400); RBC Distribution Width 12.7 % (11.5-14.5); Red Blood Cell (RBC) Count 3.24 mill/uL (4.20-5.40); White Blood Cell (WBC) Count 17.1 thou/uL (4.8-10.8)
[2022-02-20 07:18] LABS: Anion Gap 15 mmol/L (10-20); BUN (Urea Nitrogen) 10 mg/dL (9.8-20.1); Calc. Creatinine Clearance 105 mL/min (70-130); Calcium 9.4 mg/dL (7.8-10.44); Carbon Dioxide 25 mmol/L (23-31); Chloride 100 mmol/L (98-107); Estimated GFR 101; Glucose 131 mg/dL (80-115); Magnesium 2.1 mg/dL (1.6-2.6); Potassium 4.7 mmol/L (3.5-5.1); Sodium 135 mmol/L (136-145)
[2022-02-20 07:42] LABS: Band 20 % (5-11); Lymphocytes 26 % (21-51); MDiff Complete? YES; Metamyelocyte 3 % (0-0); Monocytes 1 % (0-10); Myelocyte 4 % (0-0); Neutrophil 46 % (42-75); Platelet Morphology Comment Appears Increased; RBC Morphology Normal
[2022-02-20] MEDS: Polyethylene Glycol 3350 17 GM Packet PO SCH (09:59)
[2022-02-20] MEDS: Sodium Bicarbonate Tab 325 MG TAB PO SCH ×3 (10:00→23:55)
[2022-02-20] MEDS ORDERED: oxyCODONE ER 10 MG TAB PO SCH ×2 (10:00→23:00)
[2022-02-20] MEDS: Heparin 5,000 UNITS/ML VIAL SC SCH ×2 (10:00→23:56)
[2022-02-20] MEDS: Ferrous Sulfate 325 MG TAB PO SCH ×2 (10:00→18:02)
[2022-02-20] MEDS: Gabapentin 400 MG CAP PO SCH ×2 (10:01→14:44)
[2022-02-20] MEDS: NIFEdipine XL 60 MG TAB PO SCH (10:01)
[2022-02-20] MEDS: Losartan 25 MG TAB PO SCH (10:02)
[2022-02-20] MEDS: Sodium Chloride 1 GM TAB PO SCH ×3 (10:02→23:55)
[2022-02-20] MEDS: oxyCODONE ER 10 MG TAB PO SCH (10:02)
[2022-02-20] MEDS: Famotidine 20 MG TAB PO SCH ×2 (10:02→23:55)
[2022-02-20] MEDS: diphenhydrAMINE 50 MG/ML VIAL IVP PRN (10:03)
[2022-02-20] MEDS: Lidocaine 5% Patch TD SCH (12:39)
[2022-02-20] MEDS ORDERED: Meropenem 1 GM in Sodium Chloride 0.9% 100 ML IVPB SCH (16:00)
[2022-02-20 18:37] LABS: A/G Ratio 0.7 (0.7-1.7); Albumin 2.5 g/dL (2.9-4.4); Alpha 1 0.4 g/dL (0.0-0.4); Alpha 2 1.5 g/dL (0.4-1.0); Gamma 0.7 g/dL (0.4-1.8); Globulin, Total 3.6 g/dL (2.2-3.9); M-Spike Not Observed g/dL (Not Observed); Protein Electrophoresis Intrp Note: (.)
[2022-02-20] MEDS: Nicotine 21 MG PATCH TD SCH (19:00)
[2022-02-20] MEDS ORDERED: oxyCODONE ER 20 MG TAB PO SCH (21:00)
[2022-02-20] MEDS: traZODone HCl 50 MG TAB PO SCH (23:55)
[2022-02-20] MEDS: Senokot S 8.6-50 MG TAB PO SCH (23:56)
[2022-02-20] MEDS: Transdermal Patch Removal TOP SCH (23:56)
[2022-02-21] MEDS: Gabapentin 300 MG CAP PO SCH ×2 (00:02→22:46)
[2022-02-21] MEDS: Meropenem 1 GM in Sodium Chloride 0.9% 100 ML IVPB SCH ×4 (00:55→22:55)
[2022-02-21] MEDS: Morphine 2 MG/ML VIAL SLOW IVP PRN ×2 (04:20→11:10)
[2022-02-21 06:35] LABS: Hemoglobin 11.2 g/dL (12.0-16.0); Mean Corpuscular HGB CONC 32.7 g/dL (32.0-36.0); Mean Corpuscular Hemoglobin 33.9 pg (27.0-31.0); Mean Platelet Volume 6.6 fL (7.4-10.4); Platelet Count 649 thou/uL (130-400); RBC Distribution Width 12.8 % (11.5-14.5); White Blood Cell (WBC) Count 19.3 thou/uL (4.8-10.8)
[2022-02-21 06:50] LABS: Band 8 % (5-11); Eosinophils 1 % (0-10); Lymphocytes 12 % (21-51); MDiff Complete? YES; Magnesium 2.2 mg/dL (1.6-2.6); Metamyelocyte 2 % (0-0); Monocytes 7 % (0-10); Myelocyte 3 % (0-0); Neutrophil 67 % (42-75); Platelet Morphology Comment Appears Increased; Toxic Granulation SLIGHT
[2022-02-21 07:38] LABS: Anion Gap 17 mmol/L (10-20); BUN (Urea Nitrogen) 13 mg/dL (9.8-20.1); Calc. Creatinine Clearance 99 mL/min (70-130); Calcium 9.2 mg/dL (7.8-10.44); Carbon Dioxide 21 mmol/L (23-31); Chloride 102 mmol/L (98-107); Estimated GFR 100; Glucose 125 mg/dL (80-115); Potassium 4.6 mmol/L (3.5-5.1); Sodium 135 mmol/L (136-145)
[2022-02-21] MEDS: NIFEdipine XL 60 MG TAB PO SCH (08:21)
[2022-02-21] MEDS: Losartan 25 MG TAB PO SCH (08:22)
[2022-02-21] MEDS: Sodium Bicarbonate Tab 325 MG TAB PO SCH ×3 (08:22→22:47)
[2022-02-21] MEDS: Sodium Chloride 1 GM TAB PO SCH ×3 (08:23→22:47)
[2022-02-21] MEDS: Famotidine 20 MG TAB PO SCH ×2 (08:23→22:47)
[2022-02-21] MEDS: Ferrous Sulfate 325 MG TAB PO SCH ×2 (08:23→16:19)
[2022-02-21] MEDS: Gabapentin 400 MG CAP PO SCH ×2 (08:24→16:18)
[2022-02-21] MEDS: Polyethylene Glycol 3350 17 GM Packet PO SCH (08:24)
[2022-02-21] MEDS: oxyCODONE ER 10 MG TAB PO SCH ×2 (08:25→22:48)
[2022-02-21] MEDS: Senokot S 8.6-50 MG TAB PO SCH ×2 (08:28→22:55)
[2022-02-21] MEDS: Heparin 5,000 UNITS/ML VIAL SC SCH ×2 (08:31→22:53)
[2022-02-21] MEDS: Lorazepam 0.5 MG TAB PO PRN (11:10)
[2022-02-21 12:51] VITALS: BMI 22.8
[2022-02-21] MEDS ORDERED: Magnevist 469MG/ML 20 ML VIAL ONE (14:46)
[2022-02-21] MEDS: Nicotine 21 MG PATCH TD SCH (16:20)
[2022-02-21] MEDS: Lidocaine 5% Patch TD SCH (16:27)
[2022-02-21] MEDS: Dronabinol 2.5 MG CAP PO SCH (18:12)
[2022-02-21] MEDS: traZODone HCl 50 MG TAB PO SCH (22:47)
[2022-02-21] MEDS: Transdermal Patch Removal TOP SCH (22:55)
[2022-02-22] MEDS: Morphine 2 MG/ML VIAL SLOW IVP PRN ×2 (05:11→16:33)
[2022-02-22] MEDS: diphenhydrAMINE 50 MG/ML VIAL IVP PRN (05:12)
[2022-02-22 07:06] LABS: Hemoglobin 10.9 g/dL (12.0-16.0); Mean Corpuscular HGB CONC 32.3 g/dL (32.0-36.0); Mean Corpuscular Hemoglobin 33.7 pg (27.0-31.0); Mean Platelet Volume 6.6 fL (7.4-10.4); Platelet Count 651 thou/uL (130-400); RBC Distribution Width 12.9 % (11.5-14.5); Red Blood Cell (RBC) Count 3.23 mill/uL (4.20-5.40); White Blood Cell (WBC) Count 16.5 thou/uL (4.8-10.8)
[2022-02-22 07:26] LABS: Anion Gap 18 mmol/L (10-20); BUN (Urea Nitrogen) 15 mg/dL (9.8-20.1); Calc. Creatinine Clearance 97 mL/min (70-130); Calcium 9.4 mg/dL (7.8-10.44); Carbon Dioxide 21 mmol/L (23-31); Chloride 102 mmol/L (98-107); Estimated GFR 100; Glucose 126 mg/dL (80-115); Magnesium 2.2 mg/dL (1.6-2.6); Potassium 4.3 mmol/L (3.5-5.1); Sodium 137 mmol/L (136-145)
[2022-02-22 08:18] LABS: Band 17 % (5-11); Eosinophils 1 % (0-10); Lymphocytes 13 % (21-51); MDiff Complete? YES; Metamyelocyte 1 % (0-0); Monocytes 7 % (0-10); Myelocyte 4 % (0-0); Neutrophil 57 % (42-75); Platelet Morphology Comment Appears Increased; Polychromasia SLIGHT = 2-3 cells (100X) (0-2/hpf)
[2022-02-22] MEDS: Meropenem 1 GM in Sodium Chloride 0.9% 100 ML IVPB SCH ×3 (08:36→23:57)
[2022-02-22] MEDS: Dronabinol 2.5 MG CAP PO SCH ×2 (08:38→17:36)
[2022-02-22] MEDS: oxyCODONE ER 10 MG TAB PO SCH ×2 (08:38→20:05)
[2022-02-22] MEDS: Sodium Chloride 1 GM TAB PO SCH ×3 (08:38→20:19)
[2022-02-22] MEDS: Sodium Bicarbonate Tab 325 MG TAB PO SCH ×3 (08:38→20:05)
[2022-02-22] MEDS: NIFEdipine XL 60 MG TAB PO SCH (08:39)
[2022-02-22] MEDS: Losartan 25 MG TAB PO SCH (08:40)
[2022-02-22] MEDS: Gabapentin 400 MG CAP PO SCH ×2 (08:40→15:57)
[2022-02-22] MEDS: Ferrous Sulfate 325 MG TAB PO SCH ×2 (08:41→17:37)
[2022-02-22] MEDS: Famotidine 20 MG TAB PO SCH ×2 (08:41→20:04)
[2022-02-22] MEDS: Heparin 5,000 UNITS/ML VIAL SC SCH ×2 (09:27→20:02)
[2022-02-22] MEDS: Sodium Chloride 0.9% 1,000 ML IV SCH ×2 (09:27→18:02)
[2022-02-22] MEDS: Lidocaine 5% Patch TD SCH (09:28)
[2022-02-22] MEDS: Polyethylene Glycol 3350 17 GM Packet PO SCH (09:28)
[2022-02-22] MEDS: Senokot S 8.6-50 MG TAB PO SCH ×2 (09:29→20:07)
[2022-02-22 09:59] LABS: SARS-CoV-2 NAA Rapid Test Not Detected (NotDetected)
[2022-02-22] MEDS ORDERED: Bupivacaine/Epinephrine 0.25% 30 ML VIAL ONE (10:09)
[2022-02-22] MEDS ORDERED: SUGAMMADEX SODIUM 200 MG/2 ML VIAL ONE (10:15)
[2022-02-22] MEDS ORDERED: fentaNYL Citrate/PF 100 MCG/2 ML SYRINGE ONE (10:15)
[2022-02-22] MEDS ORDERED: PROPOFOL 200 MG/20 ML VIAL ONE (10:22)
[2022-02-22] MEDS ORDERED: Phenylephrine 10 MG/ML VIAL ONE (10:22)
[2022-02-22] MEDS ORDERED: Lidocaine 1% PF 5 ML VIAL ONE (10:22)
[2022-02-22] MEDS ORDERED: Rocuronium Bromide 10 MG/ML (10ML VIAL) ONE (10:22)
[2022-02-22] MEDS ORDERED: ePHEDrine 50 MG/ML VIAL ONE (10:22)
[2022-02-22] MEDS ORDERED: Succinylcholine 200 MG/10 ml SYRINGE FS ONE (10:22)
[2022-02-22] MEDS ORDERED: Dexamethasone 20 MG/5 ML VIAL ONE (10:22)
[2022-02-22] MEDS ORDERED: Promethazine HCl 25 MG/ML VIAL IM PRN (11:51)
[2022-02-22] MEDS ORDERED: Promethazine HCl 25 MG/ML VIAL IVPB PRN (11:51)
[2022-02-22] MEDS ORDERED: Ondansetron HCl/PF 4 MG/2 ML Vial IVP PRN (11:51)
[2022-02-22] MEDS ORDERED: Fentanyl 100 MCG/2 ML VIAL ONE ×3 (11:57→12:37)
[2022-02-22 14:10] LABS: DRVVT Confirm 39.2
[2022-02-22 14:27] LABS: Factor IX Test 251.3 % ACTIVE (56-149); Factor VIII Test 469.2 % ACTIVE (56-157)
[2022-02-22 14:45] LABS: HEX PHOS LA Tube 1 45.8 SEC; HEX PHOS LA Tube 2 36.7 SEC; Hexagonal Phospholipid Neut 9.1 SEC (0-8.0)
[2022-02-22] MEDS: HYDROcodone/Acetaminophen 7.5/325 mg Tablet PO PRN (16:34)
[2022-02-22] MEDS: Nicotine 21 MG PATCH TD SCH (17:35)
[2022-02-22] MEDS: Gabapentin 300 MG CAP PO SCH (20:04)
[2022-02-22] MEDS: traZODone HCl 50 MG TAB PO SCH (20:07)
[2022-02-22] MEDS: Transdermal Patch Removal TOP SCH (20:22)
[2022-02-23] MEDS: Morphine 2 MG/ML VIAL SLOW IVP PRN ×3 (04:06→23:57)
[2022-02-23] MEDS: Sodium Chloride 0.9% 1,000 ML IV SCH (05:55)
[2022-02-23 06:04] LABS: #Eosinphils 0.3 thou/uL (0.0-0.7); #Monocytes 1.3 thou/uL (0.11-0.59); %Basophils 0.1 % (0.0-1.0); %Eosinophils 1.7 % (0.0-10.0); %Lymphocytes 13.1 % (21.0-51.0); %Monocytes 8.1 % (0.0-10.0); %Neutrophils 76.9 % (42.0-75.0); Hemoglobin 10.3 g/dL (12.0-16.0); Mean Corpuscular HGB CONC 34.3 g/dL (32.0-36.0); Mean Corpuscular Hemoglobin 36.7 pg (27.0-31.0); Platelet Count 583 thou/uL (130-400); RBC Distribution Width 12.8 % (11.5-14.5); White Blood Cell (WBC) Count 15.6 thou/uL (4.8-10.8)
[2022-02-23] MEDS: HYDROcodone/Acetaminophen 7.5/325 mg Tablet PO PRN ×3 (06:16→19:03)
[2022-02-23 06:21] LABS: Anion Gap 15 mmol/L (10-20); BUN (Urea Nitrogen) 9 mg/dL (9.8-20.1); Calc. Creatinine Clearance 107 mL/min (70-130); Calcium 8.8 mg/dL (7.8-10.44); Carbon Dioxide 21 mmol/L (23-31); Chloride 101 mmol/L (98-107); Estimated GFR 103; Glucose 118 mg/dL (80-115); Potassium 4.2 mmol/L (3.5-5.1); Sodium 133 mmol/L (136-145)
[2022-02-23] MEDS: Gabapentin 400 MG CAP PO SCH ×2 (07:47→14:50)
[2022-02-23] MEDS: NIFEdipine XL 60 MG TAB PO SCH (07:48)
[2022-02-23] MEDS: Losartan 25 MG TAB PO SCH (07:48)
[2022-02-23] MEDS: Senokot S 8.6-50 MG TAB PO SCH ×2 (07:48→20:01)
[2022-02-23] MEDS: Ferrous Sulfate 325 MG TAB PO SCH ×2 (07:49→14:51)
[2022-02-23] MEDS: Famotidine 20 MG TAB PO SCH ×2 (07:49→20:02)
[2022-02-23] MEDS: oxyCODONE ER 10 MG TAB PO SCH (07:50)
[2022-02-23] MEDS: Sodium Chloride 1 GM TAB PO SCH ×3 (07:51→20:01)
[2022-02-23] MEDS: Meropenem 1 GM in Sodium Chloride 0.9% 100 ML IVPB SCH ×3 (07:51→23:57)
[2022-02-23] MEDS: Sodium Bicarbonate Tab 325 MG TAB PO SCH ×3 (07:51→20:01)
[2022-02-23] MEDS: Heparin 5,000 UNITS/ML VIAL SC SCH ×2 (07:51→20:02)
[2022-02-23] MEDS: Polyethylene Glycol 3350 17 GM Packet PO SCH (07:51)
[2022-02-23] MEDS ORDERED: METHadone HCl 10 MG TAB PO SCH (08:15)
[2022-02-23] MEDS: Lidocaine 5% Patch TD SCH (08:59)
[2022-02-23] MEDS: Dronabinol 2.5 MG CAP PO SCH ×2 (09:26→14:51)
[2022-02-23] MEDS: Nicotine 21 MG PATCH TD SCH (17:37)
[2022-02-23] MEDS ORDERED: Naloxone HCl 0.4 mg/ml Vial IV PRN (17:58)
[2022-02-23] MEDS: traZODone HCl 50 MG TAB PO SCH (20:02)
[2022-02-23] MEDS: Gabapentin 300 MG CAP PO SCH (20:02)
[2022-02-23] MEDS: METHadone HCl 10 MG TAB PO SCH (20:02)
[2022-02-23] MEDS: Lorazepam 0.5 MG TAB PO PRN (20:03)
[2022-02-23] MEDS: Transdermal Patch Removal TOP SCH (20:03)
[2022-02-23] MEDS: Zolpidem Tartrate 5 MG TAB PO PRN (21:07)
[2022-02-24] MEDS: HYDROcodone/Acetaminophen 7.5/325 mg Tablet PO PRN ×2 (04:10→13:53)
[2022-02-24] MEDS: diphenhydrAMINE 25 MG CAP PO PRN (04:12)
[2022-02-24] MEDS: Morphine 2 MG/ML VIAL SLOW IVP PRN (06:03)
[2022-02-24 06:30] LABS: #Eosinphils 0.1 thou/uL (0.0-0.7); #Monocytes 1.3 thou/uL (0.11-0.59); #Neutrophils 12.4 thou/uL (1.40-6.50); %Basophils 0.1 % (0.0-1.0); %Eosinophils 0.8 % (0.0-10.0); %Lymphocytes 12.8 % (21.0-51.0); %Monocytes 8.1 % (0.0-10.0); %Neutrophils 78.2 % (42.0-75.0); Hemoglobin 8.9 g/dL (12.0-16.0); Mean Corpuscular Hemoglobin 33.4 pg (27.0-31.0); Mean Platelet Volume 6.7 fL (7.4-10.4); Platelet Count 541 thou/uL (130-400); RBC Distribution Width 12.6 % (11.5-14.5); Red Blood Cell (RBC) Count 2.67 mill/uL (4.20-5.40); White Blood Cell (WBC) Count 15.8 thou/uL (4.8-10.8)
[2022-02-24 07:00] LABS: Anion Gap 16 mmol/L (10-20); BUN (Urea Nitrogen) 9 mg/dL (9.8-20.1); Calc. Creatinine Clearance 111 mL/min (70-130); Calcium 9.1 mg/dL (7.8-10.44); Carbon Dioxide 23 mmol/L (23-31); Chloride 100 mmol/L (98-107); Estimated GFR 104; Glucose 125 mg/dL (80-115); Magnesium 2.1 mg/dL (1.6-2.6); Potassium 4.1 mmol/L (3.5-5.1); Sodium 135 mmol/L (136-145)
[2022-02-24] MEDS: METHadone HCl 10 MG TAB PO SCH ×2 (09:36→21:15)
[2022-02-24] MEDS: Senokot S 8.6-50 MG TAB PO SCH ×2 (09:37→21:16)
[2022-02-24] MEDS: NIFEdipine XL 60 MG TAB PO SCH (09:37)
[2022-02-24] MEDS: Sodium Bicarbonate Tab 325 MG TAB PO SCH ×3 (09:37→21:15)
[2022-02-24] MEDS: Lidocaine 5% Patch TD SCH (09:37)
[2022-02-24] MEDS: Gabapentin 400 MG CAP PO SCH ×2 (09:37→13:53)
[2022-02-24] MEDS: Sodium Chloride 1 GM TAB PO SCH ×3 (09:37→21:15)
[2022-02-24] MEDS: Losartan 25 MG TAB PO SCH (09:37)
[2022-02-24] MEDS: Famotidine 20 MG TAB PO SCH ×2 (09:38→21:16)
[2022-02-24] MEDS: Polyethylene Glycol 3350 17 GM Packet PO SCH (09:38)
[2022-02-24] MEDS: Dronabinol 2.5 MG CAP PO SCH ×2 (09:38→16:16)
[2022-02-24] MEDS: Meropenem 1 GM in Sodium Chloride 0.9% 100 ML IVPB SCH ×3 (09:38→23:25)
[2022-02-24] MEDS: Ferrous Sulfate 325 MG TAB PO SCH ×2 (09:38→13:53)
[2022-02-24] MEDS: Heparin 5,000 UNITS/ML VIAL SC SCH ×2 (09:38→21:16)
[2022-02-24] MEDS: Nicotine 21 MG PATCH TD SCH (16:16)
[2022-02-24] MEDS: Transdermal Patch Removal TOP SCH (21:16)
[2022-02-24] MEDS: traZODone HCl 50 MG TAB PO SCH (21:16)
[2022-02-24] MEDS: Gabapentin 300 MG CAP PO SCH (21:16)
[2022-02-24] MEDS: Zolpidem Tartrate 5 MG TAB PO PRN (21:27)
[2022-02-25] MEDS: Morphine 2 MG/ML VIAL SLOW IVP PRN ×2 (02:41→07:28)
[2022-02-25] MEDS: HYDROcodone/Acetaminophen 7.5/325 mg Tablet PO PRN ×2 (05:18→13:04)
[2022-02-25 06:00] LABS: Anion Gap 16 mmol/L (10-20); BUN (Urea Nitrogen) 10 mg/dL (9.8-20.1); Calc. Creatinine Clearance 113 mL/min (70-130); Calcium 8.8 mg/dL (7.8-10.44); Carbon Dioxide 23 mmol/L (23-31); Chloride 101 mmol/L (98-107); Estimated GFR 104; Glucose 110 mg/dL (80-115); Magnesium 2.1 mg/dL (1.6-2.6); Potassium 4.3 mmol/L (3.5-5.1); Sodium 136 mmol/L (136-145)
[2022-02-25] MEDS: Lorazepam 0.5 MG TAB PO PRN ×3 (06:03→23:52)
[2022-02-25 06:25] LABS: Anisocytosis SLIGHT = 6-15 cells (100X) (0-5/hpf); Lymphocytes 16 % (21-51); MDiff Complete? YES; Macrocytosis MODERATE=16-30 cells (100X) (0-5/hpf); Mean Corpuscular HGB CONC 33.7 g/dL (32.0-36.0); Mean Corpuscular Hemoglobin 35.3 pg (27.0-31.0); Mean Platelet Volume 6.8 fL (7.4-10.4); Monocytes 5 % (0-10); Neutrophil 79 % (42-75); Ovalocytes SLIGHT = 2-5 cells (100X) (0-1/hpf); Platelet Count 516 thou/uL (130-400); Platelet Morphology Comment Appears Increased; RBC Distribution Width 12.6 % (11.5-14.5); Red Blood Cell (RBC) Count 2.54 mill/uL (4.20-5.40); White Blood Cell (WBC) Count 18.3 thou/uL (4.8-10.8)
[2022-02-25] MEDS: Dronabinol 2.5 MG CAP PO SCH ×2 (07:58→17:47)
[2022-02-25] MEDS: Meropenem 1 GM in Sodium Chloride 0.9% 100 ML IVPB SCH ×3 (07:58→23:52)
[2022-02-25] MEDS: Lidocaine 5% Patch TD SCH (07:58)
[2022-02-25] MEDS: Heparin 5,000 UNITS/ML VIAL SC SCH ×2 (07:58→21:45)
[2022-02-25] MEDS: Sodium Chloride 1 GM TAB PO SCH ×3 (07:59→21:47)
[2022-02-25] MEDS: Gabapentin 400 MG CAP PO SCH ×2 (07:59→13:03)
[2022-02-25] MEDS: Senokot S 8.6-50 MG TAB PO SCH ×2 (07:59→21:46)
[2022-02-25] MEDS: Sodium Bicarbonate Tab 325 MG TAB PO SCH ×3 (07:59→21:46)
[2022-02-25] MEDS: Polyethylene Glycol 3350 17 GM Packet PO SCH (07:59)
[2022-02-25] MEDS: METHadone HCl 10 MG TAB PO SCH ×2 (07:59→21:45)
[2022-02-25] MEDS: Famotidine 20 MG TAB PO SCH ×2 (08:00→21:47)
[2022-02-25] MEDS: Losartan 25 MG TAB PO SCH (08:00)
[2022-02-25] MEDS: NIFEdipine XL 60 MG TAB PO SCH (08:00)
[2022-02-25] MEDS: Ferrous Sulfate 325 MG TAB PO SCH ×2 (08:01→17:35)
[2022-02-25] MEDS: Nicotine 21 MG PATCH TD SCH (17:35)
[2022-02-25] MEDS: Acetaminophen 325 MG TAB PO PRN (19:58)
[2022-02-25] MEDS: traZODone HCl 50 MG TAB PO SCH (21:46)
[2022-02-25] MEDS: Gabapentin 300 MG CAP PO SCH (21:47)
[2022-02-25] MEDS: Transdermal Patch Removal TOP SCH (21:47)
[2022-02-25] MEDS: Zolpidem Tartrate 5 MG TAB PO PRN (21:49)
[2022-02-25] MEDS: Ibuprofen 200 MG TAB PO PRN (22:14)
[2022-02-26] MEDS: Morphine 2 MG/ML VIAL SLOW IVP PRN ×2 (01:51→05:10)
[2022-02-26] MEDS: Acetaminophen 325 MG TAB PO PRN ×3 (05:12→23:49)
[2022-02-26 06:29] LABS: Band 21 % (5-11); Hemoglobin 8.7 g/dL (12.0-16.0); Hypochromia SLIGHT = 6-15 cells (100X) (0-5/hpf); Lymphocytes 3 % (21-51); MDiff Complete? YES; Mean Corpuscular HGB CONC 33.2 g/dL (32.0-36.0); Mean Corpuscular Hemoglobin 34.7 pg (27.0-31.0); Mean Platelet Volume 6.9 fL (7.4-10.4); Monocytes 10 % (0-10); Neutrophil 65 % (42-75); Platelet Count 490 thou/uL (130-400); Platelet Morphology Comment Appears Increased; RBC Distribution Width 12.5 % (11.5-14.5); Red Blood Cell (RBC) Count 2.51 mill/uL (4.20-5.40); White Blood Cell (WBC) Count 16.8 thou/uL (4.8-10.8)
[2022-02-26 06:31] LABS: Anion Gap 14 mmol/L (10-20); BUN (Urea Nitrogen) 13 mg/dL (9.8-20.1); Calc. Creatinine Clearance 115 mL/min (70-130); Calcium 8.7 mg/dL (7.8-10.44); Carbon Dioxide 26 mmol/L (23-31); Chloride 99 mmol/L (98-107); Estimated GFR 105; Glucose 112 mg/dL (80-115); Potassium 4.2 mmol/L (3.5-5.1); Sodium 135 mmol/L (136-145)
[2022-02-26] MEDS: Ibuprofen 200 MG TAB PO PRN (06:36)
[2022-02-26] MEDS: Sodium Bicarbonate Tab 325 MG TAB PO SCH ×3 (09:28→20:51)
[2022-02-26] MEDS: Losartan 25 MG TAB PO SCH (09:28)
[2022-02-26] MEDS: NIFEdipine XL 60 MG TAB PO SCH (09:28)
[2022-02-26] MEDS: Sodium Chloride 1 GM TAB PO SCH ×3 (09:29→20:51)
[2022-02-26] MEDS: Famotidine 20 MG TAB PO SCH ×2 (09:29→20:52)
[2022-02-26] MEDS: Gabapentin 400 MG CAP PO SCH ×2 (09:29→15:13)
[2022-02-26] MEDS: METHadone HCl 10 MG TAB PO SCH ×2 (09:29→20:51)
[2022-02-26] MEDS: Lidocaine 5% Patch TD SCH (09:30)
[2022-02-26] MEDS: Senokot S 8.6-50 MG TAB PO SCH ×2 (09:30→20:51)
[2022-02-26] MEDS: Dronabinol 2.5 MG CAP PO SCH ×2 (09:30→16:52)
[2022-02-26] MEDS: Polyethylene Glycol 3350 17 GM Packet PO SCH (09:30)
[2022-02-26] MEDS: Ferrous Sulfate 325 MG TAB PO SCH ×2 (09:30→16:49)
[2022-02-26] MEDS: Meropenem 1 GM in Sodium Chloride 0.9% 100 ML IVPB SCH ×3 (09:31→23:48)
[2022-02-26] MEDS: Heparin 5,000 UNITS/ML VIAL SC SCH ×2 (09:52→20:53)
[2022-02-26] MEDS: Nicotine 21 MG PATCH TD SCH (16:49)
[2022-02-26] MEDS ORDERED: Sodium Chloride 0.9% 250 ML IV SCH (17:45)
[2022-02-26] MEDS: traZODone HCl 50 MG TAB PO SCH (20:52)
[2022-02-26] MEDS: Gabapentin 300 MG CAP PO SCH (20:52)
[2022-02-26] MEDS: Transdermal Patch Removal TOP SCH (20:54)
[2022-02-27] MEDS: HYDROcodone/Acetaminophen 7.5/325 mg Tablet PO PRN ×2 (03:42→22:38)
[2022-02-27] MEDS: Ibuprofen 200 MG TAB PO PRN (03:44)
[2022-02-27 05:30] LABS: Anion Gap 13 mmol/L (10-20); BUN (Urea Nitrogen) 12 mg/dL (9.8-20.1); Calc. Creatinine Clearance 113 mL/min (70-130); Calcium 8.4 mg/dL (7.8-10.44); Carbon Dioxide 25 mmol/L (23-31); Chloride 100 mmol/L (98-107); Estimated GFR 104; Glucose 166 mg/dL (80-115); Potassium 4.1 mmol/L (3.5-5.1); Sodium 134 mmol/L (136-145)
[2022-02-27 07:33] LABS: Band 7 % (5-11); Hemoglobin 7.7 g/dL (12.0-16.0); Lymphocytes 8 % (21-51); MDiff Complete? YES; Macrocytosis SLIGHT = 6-15 cells (100X) (0-5/hpf); Mean Corpuscular HGB CONC 32.5 g/dL (32.0-36.0); Mean Corpuscular Hemoglobin 34.2 pg (27.0-31.0); Monocytes 8 % (0-10); Myelocyte 1 % (0-0); Neutrophil 76 % (42-75); Platelet Count 431 thou/uL (130-400); Platelet Morphology Comment Appears Increased; Polychromasia SLIGHT = 2-3 cells (100X) (0-2/hpf); RBC Distribution Width 12.5 % (11.5-14.5); Red Blood Cell (RBC) Count 2.25 mill/uL (4.20-5.40); White Blood Cell (WBC) Count 16.1 thou/uL (4.8-10.8)
[2022-02-27] MEDS: Meropenem 1 GM in Sodium Chloride 0.9% 100 ML IVPB SCH ×3 (08:31→22:58)
[2022-02-27] MEDS: Gabapentin 400 MG CAP PO SCH ×2 (08:31→14:18)
[2022-02-27] MEDS: Ferrous Sulfate 325 MG TAB PO SCH ×2 (08:31→16:11)
[2022-02-27] MEDS: Heparin 5,000 UNITS/ML VIAL SC SCH ×2 (08:32→20:31)
[2022-02-27] MEDS: Sodium Bicarbonate Tab 325 MG TAB PO SCH ×3 (08:33→20:26)
[2022-02-27] MEDS: Lidocaine 5% Patch TD SCH ×2 (08:33→09:20)
[2022-02-27] MEDS: Famotidine 20 MG TAB PO SCH ×2 (08:33→20:27)
[2022-02-27] MEDS: Sodium Chloride 1 GM TAB PO SCH ×3 (08:33→20:28)
[2022-02-27] MEDS: METHadone HCl 10 MG TAB PO SCH ×2 (08:34→20:27)
[2022-02-27] MEDS: Losartan 25 MG TAB PO SCH (08:34)
[2022-02-27] MEDS: NIFEdipine XL 60 MG TAB PO SCH (08:35)
[2022-02-27] MEDS: Polyethylene Glycol 3350 17 GM Packet PO SCH (08:35)
[2022-02-27] MEDS: Senokot S 8.6-50 MG TAB PO SCH ×2 (08:36→20:26)
[2022-02-27] MEDS: Morphine 2 MG/ML VIAL SLOW IVP PRN (09:57)
[2022-02-27] MEDS: Dronabinol 2.5 MG CAP PO SCH ×2 (10:44→16:59)
[2022-02-27] MEDS: Nicotine 21 MG PATCH TD SCH (17:22)
[2022-02-27] MEDS: Gabapentin 300 MG CAP PO SCH (20:27)
[2022-02-27] MEDS: traZODone HCl 50 MG TAB PO SCH (20:28)
[2022-02-27] MEDS: Acetaminophen 325 MG TAB PO PRN (20:28)
[2022-02-27] MEDS: Transdermal Patch Removal TOP SCH (20:31)
[2022-02-27] MEDS: diphenhydrAMINE 25 MG CAP PO PRN (22:40)
[2022-02-28] MEDS: METHadone HCl 10 MG TAB PO SCH ×2 (08:18→21:51)
[2022-02-28] MEDS: Meropenem 1 GM in Sodium Chloride 0.9% 100 ML IVPB SCH ×3 (08:19→23:07)
[2022-02-28] MEDS: Losartan 25 MG TAB PO SCH (08:19)
[2022-02-28] MEDS: Polyethylene Glycol 3350 17 GM Packet PO SCH (08:20)
[2022-02-28] MEDS: Gabapentin 400 MG CAP PO SCH ×2 (08:21→13:21)
[2022-02-28] MEDS: NIFEdipine XL 60 MG TAB PO SCH (08:21)
[2022-02-28] MEDS: Ferrous Sulfate 325 MG TAB PO SCH ×2 (08:21→16:23)
[2022-02-28] MEDS: Sodium Bicarbonate Tab 325 MG TAB PO SCH ×3 (08:21→21:54)
[2022-02-28] MEDS: Acetaminophen 325 MG TAB PO PRN ×2 (08:21→21:55)
[2022-02-28] MEDS: Famotidine 20 MG TAB PO SCH ×2 (08:21→21:53)
[2022-02-28] MEDS: Lidocaine 5% Patch TD SCH (08:22)
[2022-02-28] MEDS: Heparin 5,000 UNITS/ML VIAL SC SCH ×2 (08:22→21:56)
[2022-02-28] MEDS: Senokot S 8.6-50 MG TAB PO SCH ×2 (08:22→21:54)
[2022-02-28] MEDS: Sodium Chloride 1 GM TAB PO SCH ×3 (08:22→21:54)
[2022-02-28] MEDS: Dronabinol 2.5 MG CAP PO SCH ×2 (08:30→16:23)
[2022-02-28] MEDS: Morphine 2 MG/ML VIAL SLOW IVP PRN (09:49)
[2022-02-28] MEDS: HYDROcodone/Acetaminophen 7.5/325 mg Tablet PO PRN (13:21)
[2022-02-28 15:00] LABS: Bilirubin Negative (Negative); Blood, Urine 3+ (Negative); Clarity Turbid (Clear); Glucose, Urine (Dipstick) Normal (Negative); Ketone, Urine Trace mg/dL (Negative); Leukocyte 500 Leu/uL (Negative); Nitrite Negative (Negative); Protein, Urine (Dipstick) 70 mg/dL (Neg-Trace); Squamous Epithelial 0-3 HPF (0-3); WBC/HPF Greater than 50 HPF (0-3); pH, Urine 5.5 (5.0-9.0)
[2022-02-28 15:08] LABS: Bacteria/HPF 2+ HPF (None Seen); Urine Culture Reflex Yes Yes; Yeast-Budding Rare HPF (None Seen); Yeast-Hyphae 1+ HPF (None Seen)
[2022-02-28] MEDS: Nicotine 21 MG PATCH TD SCH (16:23)
[2022-02-28] MEDS: Gabapentin 300 MG CAP PO SCH (21:52)
[2022-02-28] MEDS: Transdermal Patch Removal TOP SCH (21:54)
[2022-02-28] MEDS: traZODone HCl 50 MG TAB PO SCH (21:55)
[2022-03-01 06:15] LABS: Hemoglobin 7.4 g/dL (12.0-16.0); Mean Corpuscular HGB CONC 32.7 g/dL (32.0-36.0); Mean Corpuscular Hemoglobin 34.6 pg (27.0-31.0); Mean Platelet Volume 7.3 fL (7.4-10.4); Platelet Count 387 thou/uL (130-400); RBC Distribution Width 12.3 % (11.5-14.5); Red Blood Cell (RBC) Count 2.13 mill/uL (4.20-5.40); White Blood Cell (WBC) Count 17.1 thou/uL (4.8-10.8)
[2022-03-01 06:25] LABS: Anion Gap 15 mmol/L (10-20); BUN (Urea Nitrogen) 10 mg/dL (9.8-20.1); Calc. Creatinine Clearance 142 mL/min (70-130); Calcium 8.5 mg/dL (7.8-10.44); Carbon Dioxide 25 mmol/L (23-31); Chloride 99 mmol/L (98-107); Estimated GFR 110; Glucose 117 mg/dL (80-115); Potassium 3.9 mmol/L (3.5-5.1); Sodium 135 mmol/L (136-145)
[2022-03-01 07:51] LABS: Band 22 % (5-11); Lymphocytes 12 % (21-51); MDiff Complete? YES; Monocytes 5 % (0-10); Myelocyte 1 % (0-0); Neutrophil 60 % (42-75); Platelet Morphology Comment Appears Adequate; Polychromasia SLIGHT = 2-3 cells (100X) (0-2/hpf)
[2022-03-01] MEDS: Losartan 25 MG TAB PO SCH (08:15)
[2022-03-01] MEDS: NIFEdipine XL 60 MG TAB PO SCH (08:16)
[2022-03-01] MEDS: Senokot S 8.6-50 MG TAB PO SCH ×2 (08:16→20:21)
[2022-03-01] MEDS: METHadone HCl 10 MG TAB PO SCH ×2 (08:16→20:22)
[2022-03-01] MEDS: Sodium Bicarbonate Tab 325 MG TAB PO SCH ×3 (08:16→20:20)
[2022-03-01] MEDS: Acetaminophen 325 MG TAB PO PRN ×2 (08:16→20:21)
[2022-03-01] MEDS: Polyethylene Glycol 3350 17 GM Packet PO SCH (08:16)
[2022-03-01] MEDS: Ferrous Sulfate 325 MG TAB PO SCH ×2 (08:17→17:16)
[2022-03-01] MEDS: Famotidine 20 MG TAB PO SCH ×2 (08:17→20:20)
[2022-03-01] MEDS: Gabapentin 400 MG CAP PO SCH ×2 (08:17→13:55)
[2022-03-01] MEDS: Sodium Chloride 1 GM TAB PO SCH ×3 (08:17→20:21)
[2022-03-01] MEDS: Heparin 5,000 UNITS/ML VIAL SC SCH ×2 (08:18→20:23)
[2022-03-01] MEDS: Lidocaine 5% Patch TD SCH (08:18)
[2022-03-01] MEDS: Meropenem 1 GM in Sodium Chloride 0.9% 100 ML IVPB SCH ×3 (08:18→23:44)
[2022-03-01] MEDS: Dronabinol 2.5 MG CAP PO SCH ×2 (09:17→17:16)
[2022-03-01] MEDS: Nicotine 21 MG PATCH TD SCH (17:16)
[2022-03-01] MEDS: traZODone HCl 50 MG TAB PO SCH (20:20)
[2022-03-01] MEDS: Gabapentin 300 MG CAP PO SCH (20:20)
[2022-03-01] MEDS: Transdermal Patch Removal TOP SCH (20:33)
[2022-03-02 06:51] LABS: Anion Gap 14 mmol/L (10-20); BUN (Urea Nitrogen) 11 mg/dL (9.8-20.1); Calc. Creatinine Clearance 139 mL/min (70-130); Calcium 8.6 mg/dL (7.8-10.44); Carbon Dioxide 27 mmol/L (23-31); Chloride 101 mmol/L (98-107); Estimated GFR 109; Glucose 110 mg/dL (80-115); Potassium 3.8 mmol/L (3.5-5.1); Sodium 138 mmol/L (136-145)
[2022-03-02 08:08] LABS: Mean Corpuscular HGB CONC 32.8 g/dL (32.0-36.0); Mean Corpuscular Hemoglobin 34.7 pg (27.0-31.0); Mean Platelet Volume 8.3 fL (7.4-10.4); Platelet Count 352 thou/uL (130-400); RBC Distribution Width 12.6 % (11.5-14.5); Red Blood Cell (RBC) Count 2.01 mill/uL (4.20-5.40); White Blood Cell (WBC) Count 15.8 thou/uL (4.8-10.8)
[2022-03-02] MEDS: METHadone HCl 10 MG TAB PO SCH ×2 (08:27→20:07)
[2022-03-02] MEDS: Sodium Bicarbonate Tab 325 MG TAB PO SCH ×3 (08:30→20:04)
[2022-03-02] MEDS: Sodium Chloride 1 GM TAB PO SCH ×3 (08:30→20:04)
[2022-03-02] MEDS: NIFEdipine XL 60 MG TAB PO SCH (08:30)
[2022-03-02] MEDS: Senokot S 8.6-50 MG TAB PO SCH ×2 (08:30→20:04)
[2022-03-02] MEDS: Losartan 25 MG TAB PO SCH (08:30)
[2022-03-02] MEDS: Ferrous Sulfate 325 MG TAB PO SCH ×2 (08:30→15:32)
[2022-03-02] MEDS: Heparin 5,000 UNITS/ML VIAL SC SCH ×2 (08:31→20:08)
[2022-03-02] MEDS: Lidocaine 5% Patch TD SCH (08:31)
[2022-03-02] MEDS: Gabapentin 400 MG CAP PO SCH ×2 (08:31→12:29)
[2022-03-02] MEDS: Famotidine 20 MG TAB PO SCH ×2 (08:31→20:05)
[2022-03-02] MEDS: Dronabinol 2.5 MG CAP PO SCH ×2 (08:31→16:05)
[2022-03-02] MEDS: Meropenem 1 GM in Sodium Chloride 0.9% 100 ML IVPB SCH ×2 (08:31→15:32)
[2022-03-02] MEDS: Polyethylene Glycol 3350 17 GM Packet PO SCH (08:32)
[2022-03-02 09:10] LABS: Band 27 % (5-11); Lymphocytes 8 % (21-51); MDiff Complete? YES; Macrocytosis SLIGHT = 6-15 cells (100X) (0-5/hpf); Metamyelocyte 3 % (0-0); Monocytes 6 % (0-10); Myelocyte 1 % (0-0); Neutrophil 52 % (42-75); Platelet Morphology Comment Appears Adequate; Polychromasia SLIGHT = 2-3 cells (100X) (0-2/hpf); Reactive Lymphocytes 3 % (0-10); Toxic Granulation MODERATE
[2022-03-02] MEDS: Acetaminophen 325 MG TAB PO PRN ×2 (11:20→20:04)
[2022-03-02] MEDS: HYDROcodone/Acetaminophen 7.5/325 mg Tablet PO PRN (12:28)
[2022-03-02] MEDS: Morphine 2 MG/ML VIAL SLOW IVP PRN (15:39)
[2022-03-02] MEDS: Nicotine 21 MG PATCH TD SCH (17:38)
[2022-03-02] MEDS: Gabapentin 300 MG CAP PO SCH (20:03)
[2022-03-02] MEDS: traZODone HCl 50 MG TAB PO SCH (20:04)
[2022-03-02] MEDS: Transdermal Patch Removal TOP SCH (20:08)
[2022-03-03] MEDS: Meropenem 1 GM in Sodium Chloride 0.9% 100 ML IVPB SCH ×2 (00:09→08:58)
[2022-03-03 06:21] LABS: Anion Gap 16 mmol/L (10-20); BUN (Urea Nitrogen) 11 mg/dL (9.8-20.1); Calc. Creatinine Clearance 136 mL/min (70-130); Calcium 8.5 mg/dL (7.8-10.44); Carbon Dioxide 25 mmol/L (23-31); Chloride 102 mmol/L (98-107); Estimated GFR 109; Glucose 118 mg/dL (80-115); Magnesium 1.9 mg/dL (1.6-2.6); Potassium 3.7 mmol/L (3.5-5.1); Sodium 139 mmol/L (136-145)
[2022-03-03 06:27] LABS: Band 18 % (5-11); Hemoglobin 7.9 g/dL (12.0-16.0); Lymphocytes 7 % (21-51); MDiff Complete? YES; Mean Corpuscular HGB CONC 32.4 g/dL (32.0-36.0); Mean Corpuscular Hemoglobin 33.6 pg (27.0-31.0); Mean Platelet Volume 8.3 fL (7.4-10.4); Monocytes 5 % (0-10); Neutrophil 70 % (42-75); Platelet Count 347 thou/uL (130-400); RBC Distribution Width 14.1 % (11.5-14.5); Red Blood Cell (RBC) Count 2.36 mill/uL (4.20-5.40); White Blood Cell (WBC) Count 15.8 thou/uL (4.8-10.8)
[2022-03-03 08:00] VITALS: BP 115/70; TEMP 99.6
[2022-03-03] MEDS: Losartan 25 MG TAB PO SCH (08:55)
[2022-03-03] MEDS: Sodium Bicarbonate Tab 325 MG TAB PO SCH ×2 (08:55→15:07)
[2022-03-03] MEDS: METHadone HCl 10 MG TAB PO SCH (08:56)
[2022-03-03] MEDS: Sodium Chloride 1 GM TAB PO SCH ×2 (08:56→15:07)
[2022-03-03] MEDS: NIFEdipine XL 60 MG TAB PO SCH (08:56)
[2022-03-03] MEDS: Gabapentin 400 MG CAP PO SCH ×2 (08:56→15:07)
[2022-03-03] MEDS: Famotidine 20 MG TAB PO SCH (08:57)
[2022-03-03] MEDS: Polyethylene Glycol 3350 17 GM Packet PO SCH (08:57)
[2022-03-03] MEDS: Heparin 5,000 UNITS/ML VIAL SC SCH (08:57)
[2022-03-03] MEDS: Ferrous Sulfate 325 MG TAB PO SCH (08:57)
[2022-03-03] MEDS: Lidocaine 5% Patch TD SCH (08:58)
[2022-03-03] MEDS ORDERED: Meropenem 1 GM in Sodium Chloride 0.9% 100 ML IVPB SCH (09:00)
[2022-03-03] MEDS: Senokot S 8.6-50 MG TAB PO SCH (09:34)
[2022-03-03] MEDS ORDERED: Lorazepam 0.5 MG TAB PO PRN (10:17)
[2022-03-03] MEDS: Dronabinol 2.5 MG CAP PO SCH (10:56)
[2022-03-03] MEDS ORDERED: Morphine 2 MG/ML VIAL SLOW IVP SCH (11:15)
[2022-03-03] MEDS: Morphine 2 MG/ML VIAL SLOW IVP PRN (14:55)
== END 2022-03-03 15:28 | disposition hospice, home (50) | DRG 264 ==
LOC: ERS 11:02 → T4-B 16:52 → OBSVTOIN 02-09 14:51
PROVIDERS: ADMIT Hospitalist; ATTEND Hospitalist
PROC: 0HBJXZX Excision of Left Upper Leg Skin, External Approach, Diagnostic (ICD-10-PCS; 2022-02-09)
PROC: 0HBHXZX Excision of Right Upper Leg Skin, External Approach, Diagnostic (ICD-10-PCS; 2022-02-09)
PROC: 0JBM0ZZ Excision of Left Upper Leg Subcutaneous Tissue and Fascia, Open Approach (ICD-10-PCS; principal; 2022-02-22)
PROC: 0DBN4ZZ Excision of Sigmoid Colon, Percutaneous Endoscopic Approach (ICD-10-PCS; 2022-02-22)
PROC: 30233N1 Transfusion of Nonautologous Red Blood Cells into Peripheral Vein, Percutaneous Approach (ICD-10-PCS; 2022-03-02)
DX: I74.09 Other arterial embolism and thrombosis of abdominal aorta (principal); G92.8 Other toxic encephalopathy; I70.262 Atherosclerosis of native arteries of extremities with gangrene, left leg; R65.10 Systemic inflammatory response syndrome (SIRS) of non-infectious origin without acute organ dysfunction; L97.129 Non-pressure chronic ulcer of left thigh with unspecified severity; E22.2 Syndrome of inappropriate secretion of antidiuretic hormone; E87.2 Acidosis; D62 Acute posthemorrhagic anemia; I70.0 Atherosclerosis of aorta; I70.212 Atherosclerosis of native arteries of extremities with intermittent claudication, left leg; Z66 Do not resuscitate; Z51.5 Encounter for palliative care; Z20.822 Contact with and (suspected) exposure to COVID-19; I10 Essential (primary) hypertension; E78.5 Hyperlipidemia, unspecified; F17.210 Nicotine dependence, cigarettes, uncomplicated; M48.00 Spinal stenosis, site unspecified; G89.29 Other chronic pain; M47.816 Spondylosis without myelopathy or radiculopathy, lumbar region; J44.9 Chronic obstructive pulmonary disease, unspecified; M48.061 Spinal stenosis, lumbar region without neurogenic claudication; T43.95XA Adverse effect of unspecified psychotropic drug, initial encounter; T40.2X5A Adverse effect of other opioids, initial encounter; I95.1 Orthostatic hypotension; Z79.899 Other long term (current) drug therapy; Z88.8 Allergy status to other drugs, medicaments and biological substances; Z98.890 Other specified postprocedural states; Z80.0 Family history of malignant neoplasm of digestive organs; Z82.49 Family history of ischemic heart disease and other diseases of the circulatory system; Z88.0 Allergy status to penicillin; Z91.19 Patient's noncompliance with other medical treatment and regimen
CPT/HCPCS: 36415; 36430; 71045; 71260; 72157; 72193; 74177; 80048; 80053; 80202; 81001; 82595; 83520; 83605; 83690; 83735; 83880; 83930; 83935; 84145; 84155; 84165; 84300; 84443; 85025; 85240; 85250; 85598; 85610; 85613; 85730; 86037; 86038; 86146; 86147; 86160; 86200; 86225; 86706; 86803; 86850; 86900; 86901; 87040; 87070; 87077; 87086; 87186; 87205; 87252; 87340; 87389; 88305; 96372; 96374; 96375; 96376; 97139; A4649; A9579; C1751; C1889; G0378; J0696; J0744; J1100; J1200; J1644; J2185; J2270; J2370; J2405; J2704; J2920; J3010; J3370; J3490; J7030; J7050; P9016; P9047; Q0167; Q9967; U0002; U0003; U0005